=== PATIENT | female | born 1960 | race Caucasian/White ===

== ENCOUNTER → 2019-10-30 10:54 | Outpatient (CLI) | payer BC, SELFPAY ==
--- NOTE | ~2019-10-30 | MM_ITS ---
EXAMINATION: MM screening blayne BI w gabriella HISTORY: Screening mammogram TECHNIQUE: Craniocaudal and mediolateral oblique 3-D tomosynthesis images were obtained and synthetic 2-D images were generated. CAD analysis was submitted and interpreted. COMPARISON: 08/04/2018 and 12/26/2017 right diagnostic digital mammogram examinations /, 10/06/2015 bilateral digital screening mammogram examinations BREAST PARENCHYMAL COMPOSITION: There are scattered areas of fibroglandular density. FINDINGS: Scattered punctate benign right breast calcifications. Fewer benign left breast calcificati ons. There is no evidence of suspicious mass, calcification, or architectural distortion to suggest m alignancy in either breast. There has been no suspicious interval change. IMPRESSION: 1. No mammographic evidence of malignancy. 2. Recommend routine screening mammography in one year. BI-RADS Category 2: Benign finding(s). Reviewed, dictated and finalized at location A. ERCIAL ELECTRICIAN
== END ==
PROVIDERS: PCP Chiropractor; Visit Provider Obstetrics & Gynecology
DX: Z12.31 Encounter for screening mammogram for malignant neoplasm of breast (principal)
CPT/HCPCS: 77063; 77067

== ENCOUNTER → 2020-06-24 13:47 | Outpatient (CLI) | payer BC, SELFPAY ==
--- NOTE | ~2020-06-24 | XR_ITS ---
XR knee RT min 4V DATE: 06/24/2020 14:14 INDICATION: Right knee pain TECHNIQUE: 4 views including sunrise and standing AP, PA and lateral COMPARISON: None FINDINGS: There is mild periarticular spurring at the patellofemoral and medial compartments, mild lo ss of height of the medial compartment, compatible with osteoarthritis. There is enthesopathy of the superior pole of the patella at the quadriceps and patellar tendon inser tion sites. No fracture, dislocation or joint effusion. No periosteal reaction or bone destruction. No radiopaque intra-articular loose body or chondrocalcinosis is evident. 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
== END ==
PROVIDERS: PCP Chiropractor; Visit Provider Chiropractor
DX: M17.11 Unilateral primary osteoarthritis, right knee (principal)
CPT/HCPCS: 73564

== ENCOUNTER 2021-09-12 09:55 | Outpatient (CLI) | payer BC, SELFPAY ==
--- NOTE | ~2021-09-12 | MM_ITS ---
EXAMINATION: MM screening blayne BI w gabriella HISTORY: Screening TECHNIQUE: Craniocaudal and mediolateral oblique 3-D tomosynthesis images were obtained and synthetic 2-D images were generated. CAD analysis was submitted and interpreted. COMPARISON: Comparison to multiple prior studies sequentially, with oldest reviewed study dated 03/09. BREAST PARENCHYMAL COMPOSITION: There are scattered areas of fibroglandular density. FINDINGS: There is no evidence of suspicious mass, calcification, or architectural distortion to sugg est malignancy in either breast. There has been no suspicious interval change. IMPRESSION: 1. No mammographic evidence of malignancy. 2. Recommend routine screening mammography in one year. BI-RADS Category 1: Negative Reviewed, dictated and finalized at location A. SMISSION WORKER
== END 2021-09-12 09:56 | disposition home or self-care (01) ==
PROVIDERS: PCP Chiropractor; Visit Provider Nurse Practitioner Obstetrics & Gynecology
DX: Z12.31 Encounter for screening mammogram for malignant neoplasm of breast (principal)
CPT/HCPCS: 77063; 77067

== ENCOUNTER → 2021-12-18 18:11 | Outpatient (CLI) | payer BC, SELFPAY ==
--- NOTE | ~2021-12-18 | DEXA_ITS ---
Bone Density Report Name: MICHAEL LUNA Age: 61 Sex: Female Ethnicity: White Date of : 1960 Indication: postmenopausal; screening for osteoporosis; Referring Provider: Chrissy, Denisse Joyner Study: Bone densitometry was performed. Exam Date: December 18, 2021 Accession number: [id number] Bone Density: Region BMD T-score Z-score Classification AP Spine (L1, L2, L4) 0.965 -0.6 0.8 Normal Femoral Neck (Left) 0.868 0.2 1.5 Normal Total Hip (Left) 1.023 0.7 1.6 Normal Femoral Neck (Right) 0.779 -0.6 0.7 Normal Total Hip (Right) 1.005 0.5 1.5 Normal Total Hip Mean 1.014 0.6 1.6 Normal World Health Organization criteria for BMD impression classify patients as: Normal (T-score at or above -1.0), Osteopenia (T-score between -1.0 and -2.5), or Osteoporosis (T-score at or below -2.5). 10-year Fracture Risk: FRAX not reported because: All T-scores for Spine Total, Hip Total, Femoral Neck at or above -1.0 Previous Exams: Region Exam Age BMD T-score BMD Change BMD Change Date g/cm2 vs Baseline vs Previous AP Spine(L1, L2, L4) 12/18/2021 61 0.965 -0.6 -0.110 -0.110 11/08/2010 50 1.076 0.4 Total Hip(Left) 12/18/2021 61 1.023 0.7 0.012 0.012 11/08/2010 50 1.011 0.6 Total Hip(Right) 12/18/2021 61 1.005 0.5 0.014 0.014 11/08/2010 50 0.991 0.4 *Denotes significance at 95% confidence level, LSC for AP Spine = 0.022 g/cm2, LSC for Total Hip = 0.027 g/cm2 Clinical Information Provided by Patient: Has used the following medications: Vitamin D, MULT VIT Patient maximum height was 67 Menopause Age: 50 Drinks caffeinated beverages Onset of menses at age 13 Number of children 2 Impression: The patient has normal bone mass. No significant bone loss was observed. Discussion: BONE DENSITY IS ABOVE THE MINIMUM DESIRABLE LEVEL AT ALL SKELETAL SITES TESTED. This patient?s bone mineral density is above the minimum desirable level (T-score -1.0 or better) at all sites measured. The patient should follow a healthful lifestyle (good nutrition with adequate calcium and vitamin D, and appropriate weight-bearing exercise). Follow-Up: Consider repeating this study in 5 years or sooner if there is some new clinical indication. Reported by: CHASIDY on 12/18/2021 6:35:00 PM. Reviewed, dictated and finalized at location AAna LU
== END ==
PROVIDERS: PCP Nurse Practitioner Family; Visit Provider Nurse Practitioner Obstetrics & Gynecology
DX: Z78.0 Asymptomatic menopausal state (principal)
CPT/HCPCS: 77080

== ENCOUNTER → 2022-08-23 15:02 | Outpatient (CLI) | payer BC, SELFPAY ==
--- NOTE | ~2022-08-23 | XR_ITS ---
EXAMINATION: XR lumbar spine 2-3V DATE: 08/23/2022 15:29 INDICATION: Strain of back muscle. TECHNIQUE: 3 views of lumbar spine were obtained. COMPARISON: Lumbar spine radiographs 07/31/2012, CT abdomen and pelvis 06/17/2016 FINDINGS: There is 4 degrees dextrocurvature of lumbar spine. There is mild chronic anterior wedging of T12 vertebral body. There is mildly decreased disc height at L4-L5. There is multilevel facet join t osteoarthritis, moderate in lower lumbar spine. There is a lap band around the proximal stomach. IMPRESSION: 1. Mild lumbar spondylosis. Reviewed, dictated and finalized at location A. NURSE IMPRESSION: 1. Mild lumbar spondylosis.
--- NOTE | ~2022-08-23 | XR_ITS ---
EXAMINATION: XR thoracic spine 2V DATE: 08/23/2022 15:29 INDICATION: Strain of back muscle. TECHNIQUE: 3 views of thoracic spine were obtained. COMPARISON: CT abdomen and pelvis 06/17/2016 FINDINGS: Bone alignment is normal. Vertebral body heights are normal. Intervertebral disc heights ar e normal in thoracic spine. There are endplate osteophytes at most levels. There are surgical clips i n the neck. There is a lap band around the proximal stomach. IMPRESSION: 1. Mild thoracic spondylosis. Reviewed, dictated and finalized at location A. ING ENGINEER
== END ==
PROVIDERS: PCP Nurse Practitioner Family; Visit Provider Nurse Practitioner Family
DX: S39.012A Strain of muscle, fascia and tendon of lower back, initial encounter (principal); M43.04 Spondylolysis, thoracic region; M43.06 Spondylolysis, lumbar region
CPT/HCPCS: 72070; 72100

== ENCOUNTER 2022-12-21 17:38 | Emergency (ER) | payer BC, SELFPAY ==
--- NOTE | 2022-12-21 17:42 | ED.SKABFB ---
HPI - Skin/Abscess/Foreign Bdy General Chief complaint: Skin/Abscess/Foreign Body Stated complaint: BOIL ON R BREAST Time Seen by Provider: 12/21/22 17:43 Source: patient Mode of arrival: ambulatory Limitations: no limitations History of Present Illness HPI narrative: 62-year-old female presents with complaint of redness, warmth and tenderness to right breast. Reports symptoms for the past 10 days getting progressively worse. Saw her primary care physician 2 days ago and states that the redness was that bad then and was told to continue antibiotic ointment. Patient states much worse today. Called on-call physician because her primary care physician is out of office and he would not prescribe her an antibiotic over the phone. Patient denies fever. Reports sometime over the last 10 days she poked her right breast with an insulin needle to check for drainage and there was none. She states that it started out as a small red bump, never having any drainage, and the redness slowly got bigger and bigger. Her last mammogram was August 2021 and was normal. She does have an order for a mammogram for this year that she plans to schedule soon. All systems reviewed and negative except as noted above. Related Data Home Medications Medication Instructions Recorded Confirmed escitalopram oxalate 5 mg tablet 5 mg DIRECTED 12/21/22 12/21/22 levothyroxine 100 mcg tablet 100 mcg DIRECTED 12/21/22 12/21/22 Allergies Allergy/AdvReac Type Severity Reaction Status Date / Time latex Allergy Unknown RASH-GLOVES Verified 12/16/17 08:15 levofloxacin Allergy Unknown LIP Verified 12/16/17 08:15 SWELLING naproxen Allergy Unknown PETECHIAE Verified 12/16/17 08:15 Penicillins Allergy Unknown Verified 07/31/12 14:28 Review of Systems Review of Systems: CONSTITUTIONAL: Denies fever, chills, or sweats. EYES: Denies visual changes, redness, or discharge. ENT: Denies rhinorrhea, congestion, sore throat, or otalgia. CARDIOVASCULAR: Denies chest pain, palpitations, or edema. RESPIRATORY: Denies cough or dyspnea. GASTROINTESTINAL: Denies abdominal pain, nausea, vomiting, or diarrhea. GENITOURINARY: Denies dysuria or hematuria. SKIN: Denies rash or itching. Reports redness, warmth and tenderness to lateral aspect of right breast. MUSCULOSKELETAL: Denies back pain, joint pain, or myalgia. NEUROLOGIC: Denies headache, numbness, or weakness. PSYCHIATRIC: Denies anxiety or depression. All other systems reviewed are negative, except as documented in HPI. [facility] Family History Family History (Updated 11/30/16 @ 23:56 by DOCTOR UNKNOWN) Father Family history of drug dependence Hypertension Mother Family history of kidney disease Family history of diabetes mellitus in first degree relative Sibling Family history of malignant neoplasm of brain, Onset Age: 48 Patient's sister is Social History Social History Smoking status: Never smoker Alcohol intake: current Comments At time of signature, agree with nursing past medical, surgical, social and family history. There is no relevant family history pertinent to the presenting complaint. Exam Narrative: GENERAL: This is a well-nourished, well-developed patient, in no apparent distress. HEAD: normocephalic, atraumatic. EYES: PERRL. Sclera clear/white. Vision is grossly intact. EARS: External ears normal NOSE: External nose normal NECK: Neck supple, non-tender without lymphadenopathy, masses or thyromegaly. CARDIOVASCULAR: Regular rate and rhythm without murmurs, gallops, or rubs. RESPIRATORY: Clear to auscultation. Breath sounds equal bilaterally. No wheezes, rales, or rhonchi. SKIN: warm, Dry, intact , good texture and turgor. There is an area of erythema and swelling approximately 2 cm diameter with approximately 6 cm of training and development assistant redness. no fluctuance or induration. tender on palpation. NEURO: awake, alert, and oriented to person, place and time. The
[2022-12-21 17:48] VITALS: BP 152/66; PULSE 74; RESP 16; TEMP 36.9; O2SAT 97
== END 2022-12-21 18:15 | disposition home or self-care (01) ==
PROVIDERS: Emergency Provider Nurse Practitioner Family; PCP Nurse Practitioner Family
DX: N61.0 Mastitis without abscess (principal); E89.0 Postprocedural hypothyroidism; F41.9 Anxiety disorder, unspecified; F32.A Depression, unspecified
CPT/HCPCS: 99213; G0463

== ENCOUNTER 2023-02-11 17:27 | Emergency (ER) | payer BC, SELFPAY ==
--- NOTE | 2023-02-11 17:28 | ED.URI ---
HPI - URI/Sore Throat General Chief Complaint: Upper Respiratory Infection Stated Complaint: SORE THROAT/FEVER/EARACHE Time Seen by Provider: 02/11/23 17:28 Source: patient Mode of arrival: ambulatory Limitations: no limitations History of Present Illness HPI Narrative: Preri is a 62-year-old female patient presenting to clinic today with complaints of sore throat, sinus drainage, fever, body aches, chills, and ear pain x3 days. She reports she is having a lot of nasal drainage. Fever as high as 101? F. Has had 1 episode of due to the sinus drainage. No known exposure time with COVID, flu, strep. MD elicited complaint: fever, cough, sore throat, rhinorrhea, nasal congestion and sinus pain Related Data Home Medications Medication Instructions Recorded Confirmed escitalopram oxalate 5 mg tablet 5 mg DIRECTED 12/21/22 02/11/23 levothyroxine 100 mcg tablet 100 mcg DIRECTED 12/21/22 02/11/23 Allergies Allergy/AdvReac Type Severity Reaction Status Date / Time latex Allergy Unknown RASH-GLOVES Verified 02/11/23 17:47 levofloxacin Allergy Unknown LIP Verified 02/11/23 17:47 SWELLING naproxen Allergy Unknown PETECHIAE Verified 02/11/23 17:47 Penicillins Allergy Unknown Rash Verified 02/11/23 17:47 Review of Systems Review of Systems: Pertinent positives per HPI. Patient denies any rash, headache, visual changes, dizziness, cough, shortness of breath, chest pain, palpitations, diarrhea, constipation, abdominal pain, or any urinary issues. PMFSH Family History Family History Father Family history of drug dependence Hypertension Mother Family history of kidney disease Family history of diabetes mellitus in first degree relative Sibling Family history of malignant neoplasm of brain, Onset Age: 48 Patient's sister is Social History Social History Smoking status: Never smoker Alcohol intake: current Comments At the time of my signature, I reviewed and agree with the nursing past medical, surgical, social, and family history. There is no relevant family history pertinent to the patient complaint. Exam Narrative: General: Well-developed, well nourished, in no apparent distress Head: Normocephalic, atraumatic Eyes: Pupils equally round and reactive to light bilaterally, EOM intact, sclera and conjunctive clear, no discharge, lids normal Ears: TMs intact and conjested, ear canals clear, no drainage, grossly hearing normal. Nose: Nares patent, clear nasal discharge, no inflammation, maxillary sinus tenderness. Mouth: Oral pharynx red without lesions or masses, good dentition, MMM. PND Neck: Supple, trachea midline, enlargement of anterior cervical nodes, no thyroid masses or goiter palpable. Cardio: Regular rate and rhythm, s1 and s2 normal, no murmur appreciated. Resp: Clear to auscultation bilaterally, no rhonchi, rales, wheezing or rubs Course Course Emergency Course: Portions of this record may have been created with voice recognition software. Level of Care: Express Care Visit Vital Signs Vital signs: Vital signs reviewed MDM - URI/Sore Throat MDM Narrative Medical decision making narrative: At the time of visit patient is resting comfortably on the exam table. Strep screen and influenza testing was obtained. I suspect patient has URI, pharyngitis, viral syndrome. Will send in prescription for prednisone to help with the sinus congestion and drainage. Supportive measures were discussed with the patient and she voiced understanding discharge instructions agrees to treatment plan. Differential Diagnosis Differential diagnosis: Likely upper respiratory infection, otitis media, sinusitis, viral infection, bronchitis, influenza, pharyngitis and other (COVID) Discharge Plan Discharge Clinical Impression: Viral infection Upper respira
[2023-02-11 17:43] VITALS: BP 172/66; PULSE 97; RESP 16; TEMP 37.5; O2SAT 96
[2023-02-11 17:56] VITALS: BP 172/66; PULSE 97; RESP 16; TEMP 37.5; O2SAT 96
== END 2023-02-11 18:02 | disposition home or self-care (01) ==
PROVIDERS: Emergency Provider Nurse Practitioner Family; PCP Nurse Practitioner Family
DX: B34.9 Viral infection, unspecified (principal); J06.9 Acute upper respiratory infection, unspecified; J02.9 Acute pharyngitis, unspecified; F41.9 Anxiety disorder, unspecified; F32.A Depression, unspecified; Z98.84 Bariatric surgery status; E03.9 Hypothyroidism, unspecified
CPT/HCPCS: 87081; 87804; 87880; 99213; G0463

== ENCOUNTER → 2023-05-03 09:57 | Outpatient (CLI) | payer BC, SELFPAY ==
--- NOTE | ~2023-05-03 | MM_ITS ---
EXAMINATION: MM screening blayne BI w gabriella HISTORY: Screening mammogram TECHNIQUE: Craniocaudal and mediolateral oblique 3-D tomosynthesis images were obtained and synthetic 2-D images were generated. CAD analysis was submitted and interpreted. COMPARISON: 09/12/2021, 10/30/2019 bilateral screening mammogram examinations BREAST PARENCHYMAL COMPOSITION: There are scattered areas of fibroglandular density. FINDINGS: There is no evidence of suspicious mass, calcification, or architectural distortion to sugg est malignancy in either breast. There has been no suspicious interval change. IMPRESSION: 1. No mammographic evidence of malignancy. 2. Recommend routine screening mammography in one year. BI-RADS Category 1: Negative Reviewed, dictated and finalized at location A.
== END ==
PROVIDERS: PCP Nurse Practitioner Family; Visit Provider Nurse Practitioner Family
DX: Z12.31 Encounter for screening mammogram for malignant neoplasm of breast (principal)
CPT/HCPCS: 77063; 77067

== ENCOUNTER 2023-06-29 18:04 | Emergency (ER) | payer BC, SELFPAY ==
--- NOTE | 2023-06-29 18:09 | ED.URI ---
HPI - URI/Sore Throat General Chief Complaint: Upper Respiratory Infection Stated Complaint: EARACHE/COUGH/COLD Source: patient and RN notes reviewed History of Present Illness HPI Narrative: 63 yo F presents to urgent care with complaints of left ear pain. Pt states she has been sick with cough, congestion, and fevers since night. Pt states the ear pain started today. Pt denies any N/V/D, chest pain, or SOB. Pt does report having generalized weakness. Denies any falling. Pt has been taking Coricidin with moderate relief. Related Data Home Medications Medication Instructions Recorded Confirmed escitalopram oxalate 5 mg tablet 5 mg DIRECTED 12/21/22 06/29/23 levothyroxine 100 mcg tablet 100 mcg DIRECTED 12/21/22 06/29/23 blood sugar diagnostic (Accu-Chek 06/29/23 06/29/23 Guide test strips) blood-glucose meter (Accu-Chek 06/29/23 06/29/23 Guide Glucose Meter) lancets (Accu-Chek Softclix 06/29/23 06/29/23 Lancets) metformin 500 mg tablet,extended 500 mg PO DIRECTED 06/29/23 06/29/23 release 24 hr tirzepatide 2.5 mg/0.5 mL 2.5 mg subcut DIRECTED 06/29/23 06/29/23 subcutaneous pen injector (Cass) Allergies Allergy/AdvReac Type Severity Reaction Status Date / Time latex Allergy Unknown RASH-GLOVES Verified 06/29/23 18:09 levofloxacin Allergy Unknown LIP Verified 06/29/23 18:09 SWELLING naproxen Allergy Unknown PETECHIAE Verified 06/29/23 18:09 Penicillins Allergy Unknown Rash Verified 06/29/23 18:09 Review of Systems Review of Systems: Pertinent positives and pertinent negatives per HPI. [facility] Family History Family History Father Family history of drug dependence Hypertension Mother Family history of kidney disease Family history of diabetes mellitus in first degree relative Sibling Family history of malignant neoplasm of brain, Onset Age: 48 Patient's sister is Social History Social History Smoking status: Never smoker Alcohol intake: current Spiritual care concerns: No Comments At the time of my signature, I reviewed and agree with the nursing past medical, surgical, social, and family history. There is no relevant family history pertinent to the patient complaint. Exam Narrative: GENERAL: This is a well-nourished, well-developed patient, in no apparent distress. HEAD: normocephalic, atraumatic. EYES: Sclera clear/white. Vision is grossly intact. EARS: External ears normal, auditory canals clear and without drainage, Right TM normal without perforation. Hearing grossly intact. Left TM erythremic and bulging. NOSE: External nose normal with no obvious nasal discharge, nares without redness, no rhinorrhea. THROAT: Mucous membranes moist, posterior pharynx clear. NECK: Neck supple, non-tender without lymphadenopathy, masses or thyromegaly. CARDIOVASCULAR: Regular rate and rhythm without murmurs, gallops, or rubs. RESPIRATORY: Clear to auscultation. Breath sounds equal bilaterally. No wheezes, rales, or rhonchi. SKIN: warm, intact with no suspicious lesions or rash, good texture and turgor. NEURO: awake, alert, and oriented to person, place and time. There were no obvious focal neurologic abnormalities. EXTREMITIES: No clubbing, cyanosis, or edema. No joint tenderness, effusion, or edema noted. BACK: Nontender without deformity or crepitus. No flank tenderness. Course Course Level of Care: Express Care Visit Vital Signs Vital signs: Vital Signs Temperature 100.2 F H 06/29/23 18:12 Pulse Rate 98 06/29/23 18:12 Respiratory Rate 16 06/29/23 18:12 Blood Pressure 126/72 06/29/23 18:12 Pulse Oximetry 95 06/29/23 18:12 Temperature 100.2 F H 06/29/23 18:12 Pulse Rate 98 06/29/23 18:12 Respiratory Rate 16 06/29/23 18:12 Blood Pressure 126/72 06/29/23 18:12 Pulse Ox
[2023-06-29 18:12] VITALS: BP 126/72; PULSE 98; RESP 16; TEMP 37.9; O2SAT 95
== END 2023-06-29 18:29 | disposition home or self-care (01) ==
PROVIDERS: Emergency Provider Nurse Practitioner Family; PCP Nurse Practitioner Family
DX: B34.9 Viral infection, unspecified (principal); H66.92 Otitis media, unspecified, left ear; G47.30 Sleep apnea, unspecified; E11.9 Type 2 diabetes mellitus without complications; Z79.84 Long term (current) use of oral hypoglycemic drugs; E89.0 Postprocedural hypothyroidism; Z98.84 Bariatric surgery status; F41.9 Anxiety disorder, unspecified; F32.A Depression, unspecified
CPT/HCPCS: 99213; G0463

== ENCOUNTER 2023-07-05 08:15 | Outpatient (RCR) | payer BC, SELFPAY ==
[2023-06-26 08:20] VITALS: BMI 36.9
[2023-06-26 08:23] VITALS: BMI 36.9
[2023-07-05 08:20] VITALS: BMI 36.9
== END 2023-09-17 12:40 | disposition home or self-care (01) ==
LOC: ANHDMC 08:15
PROVIDERS: PCP Nurse Practitioner Family; Visit Provider Nurse Practitioner Family
DX: E11.9 Type 2 diabetes mellitus without complications (principal); Z71.3 Dietary counseling and surveillance
CPT/HCPCS: 97802; 97803

== ENCOUNTER 2023-09-04 08:53 | Outpatient (CLI) | payer BC, SELFPAY | END 2023-09-04 08:54 | disposition home or self-care (01) | LOC: ANHAUDASC 08:53 | PROVIDERS: PCP Nurse Practitioner Family; Visit Provider Otolaryngology | DX: H90.6 Mixed conductive and sensorineural hearing loss, bilateral (principal); H69.92 Unspecified Eustachian tube disorder, left ear | CPT/HCPCS: 92557; 92567 ==

== ENCOUNTER 2023-09-06 13:35 | Emergency (ER) | payer BC, SELFPAY ==
--- NOTE | ~2023-09-06 | XR_ITS ---
Clinical Indication: Cough, rib pain PA and lateral views of the chest: Comparison: 12/28/2010 Findings: There is probable linear scarring at the right midlung and left lung base. No other pulmona ry abnormality seen.. Cardiomediastinal silhouette is within normal limits. Bones and soft tissues a re unremarkable. Impression: Linear scarring right midlung and left lung base, otherwise unremarkable exam. Reviewed, dictated and finalized at location . TERIA MANAGER Impression: Linear scarring right midlung and left lung base, otherwise unremarkable exam.
--- NOTE | 2023-09-06 13:40 | ED.URI ---
HPI - URI/Sore Throat General Chief Complaint: Upper Respiratory Infection Stated Complaint: Cough;Rib pain Source: patient, RN notes reviewed and old records reviewed Mode of arrival: ambulatory Limitations: no limitations History of Present Illness HPI Narrative: 7-year-old female presents to [facility] with complaints of cough this started around Halloween. Patient states has been seen prior to this and has had 3 rounds of antibiotics including Augmentin, clindamycin, doxycycline and steroids, for ear issues /sinus infection. Patient states still has cough and is now having right rib pain. MD elicited complaint: cough Related Data Home Medications Medication Instructions Recorded Confirmed escitalopram oxalate 5 mg tablet 5 mg DIRECTED 12/21/22 09/06/23 levothyroxine 100 mcg tablet 100 mcg DIRECTED 12/21/22 09/06/23 blood sugar diagnostic (Accu-Chek 06/29/23 07/22/23 Guide test strips) blood-glucose meter (Accu-Chek 06/29/23 07/22/23 Guide Glucose Meter) lancets (Accu-Chek Softclix 06/29/23 07/22/23 Lancets) metformin 500 mg tablet,extended 500 mg PO DIRECTED 06/29/23 09/06/23 release 24 hr tirzepatide 2.5 mg/0.5 mL 2.5 mg subcut DIRECTED 06/29/23 09/06/23 subcutaneous pen injector (Cass) Allergies Allergy/AdvReac Type Severity Reaction Status Date / Time latex Allergy Unknown RASH-GLOVES Verified 09/06/23 13:44 levofloxacin Allergy Unknown LIP Verified 09/06/23 13:44 SWELLING naproxen Allergy Unknown PETECHIAE Verified 09/06/23 13:44 Penicillins Allergy Unknown Rash Verified 09/06/23 13:44 Review of Systems Constitutional: Constitutional: Reports no additional constitutional complaints, Denies body ache(s), Denies chills, Denies fatigue, Denies fever(s) and Denies headache(s) Eyes: Eyes: Reports no additional eye complaints and Denies blurry vision ENT: Reports system reviewed and no additional complaints, except as documented, Denies vertigo, Denies dizziness, Denies ear discharge, Denies otalgia, Denies facial pain, Denies headache(s), Denies nasal congestion, Denies nasal discharge, Denies sinus pain, Denies sinus pressure and Denies sore throat Cardiovascular: Cardiovascular: Reports no additional cardiovascular complaints, Denies chest pain, Denies chest pain at rest, Denies rapid heart rate and Denies dyspnea Respiratory: Respiratory: Reports no additional respiratory complaints, Reports chest congestion, Reports cough, Reports pain on inspiration, Reports pain with cough and Denies dyspnea Comments: Right rib pain Gastrointestinal: Gastrointestinal: Denies abdominal pain, Denies diarrhea, Denies nausea and Denies vomiting Integumentary/Breasts: Skin/Breast: Denies rash Neurologic: Reports system reviewed and no additional complaints, except as documented, Denies vertigo, Denies dizziness and Denies headache(s) Endocrine: Endocrine: Denies fatigue PMF Family History Family History Father Family history of drug dependence Hypertension Mother Family history of kidney disease Family history of diabetes mellitus in first degree relative Sibling Family history of malignant neoplasm of brain, Onset Age: 48 Patient's sister is Social History Social History Social History: Caffeine-daily Smoking status: Never smoker Alcohol intake: current Alcohol use details: rarely Substance use: never Substance use type: does not use Lack of Transportation: No Lack of Food: Never True Current Housing: I Have Housing Concerned About Future Housing: No Difficulty Paying Gas/Electric Bills: No Difficulty Paying for Meds: No Currently Unemployed: No Education: Master's Degree or Higher Difficulty w/ Childcare or Family Care: No Spiritual care concerns: No Comments At the time of my signature, I re
[2023-09-06 13:43] VITALS: BP 151/63; PULSE 73; RESP 16; TEMP 36.4; O2SAT 73
[2023-09-06 13:46] VITALS: BP 151/63; PULSE 73; RESP 16; TEMP 36.4; O2SAT 73
== END 2023-09-06 14:17 | disposition home or self-care (01) ==
PROVIDERS: Emergency Provider Registered Nurse; PCP Nurse Practitioner Family
DX: R05.2 Subacute cough (principal); Z79.899 Other long term (current) drug therapy; Z79.84 Long term (current) use of oral hypoglycemic drugs
CPT/HCPCS: 71046; 99213; G0463

== ENCOUNTER 2024-05-07 07:25 | Outpatient (CLI) | payer BC, SELFPAY ==
--- NOTE | ~2024-05-07 | MM_ITS ---
EXAMINATION: MM screening [facility] BI w gabriella HISTORY: Screening mammogram TECHNIQUE: Craniocaudal and mediolateral oblique 3-D tomosynthesis images were obtained and synthetic 2-D images were generated. CAD analysis was submitted and interpreted. COMPARISON: 05/03/2023, 09/12/2021, 10/30/2019 BREAST PARENCHYMAL COMPOSITION:Not Dense. There are scattered areas of fibroglandular density. FINDINGS: No suspicious mass, calcification, or architectural distortion are identified in either [place]chito ast to suggest malignancy. There has been no suspicious interval change. IMPRESSION: No mammographic evidence of malignancy. Recommend routine screening mammography in one year. BI-RADS Category 1: Negative Reviewed, dictated and finalized at location .
== END 2024-05-07 07:26 | disposition home or self-care (01) ==
DX: Z12.31 Encounter for screening mammogram for malignant neoplasm of breast (principal)
CPT/HCPCS: 77063; 77067

== ENCOUNTER 2025-04-27 09:12 | Outpatient (CLI) | payer BC, SELFPAY ==
--- NOTE | ~2025-04-27 | XR_ITS ---
XR abdomen/kub 1V 04/27/2025 09:44 INDICATION: Left renal stone TECHNIQUE: KUB COMPARISON: None FINDINGS: Bowel gas pattern is normal. There is no evidence of free air, mass, organomegaly, ascites or obstruction. There is a left renal stone in the lower pole. There are cholecystectomy clips. The bones appear intact. IMPRESSION: 1: Left nephrolithiasis.. Reviewed, dictated and finalized at location O. IMPRESSION: 1: Left nephrolithiasis..
== END 2025-04-27 09:13 | disposition home or self-care (01) ==
PROVIDERS: Visit Provider Physician Assistant
DX: N20.0 Calculus of kidney (principal)
CPT/HCPCS: 74018

== ENCOUNTER 2025-05-18 08:08 | Outpatient (CLI) | payer BC, SELFPAY ==
--- OUTSIDE RECORDS SUMMARY | 2024-01-18 04:00 | XMS_ITS ---
Author Organization [facility] Address [address] [facility] [address] [place], [place] [id number] Care Team Providers Care Deep Well Contractor Name Role Phone Finesse Duarte DO [phone] Migration, Provider Unavailable Unavailable REASON FOR VISIT EMR-Abiodun Encounters Encounter Location Date Provider Diagnosis [facility] [address] [facility] [address] [place], [place] [id number] 01/18/2024 Provider Migration Plan Of Treatment No Information Progress Notes * MICHAEL LUNA KDOB:1959 (65 yo F)Acc No.[id number]:01/18/2024 Patient: MICHAEL ZEPEDA :1960 A ge:63 Y S ex:Female Address:[place], [address] Subjective: * Chief Complaints: * E MR-Abiodun * Medical History: * Surgical History: * Hospitalization/Major Diagno stic Procedure: * Medications: Objective: * Vitals: Past Vitals:* 09/06/2023 Wt: 227.00, BMI: 36.1 * Physical Examination: Assessment: Plan: * Treatment: * Procedure Codes: * * Date:
--- OUTSIDE RECORDS SUMMARY | 2024-01-19 04:00 | XMS_ITS ---
Author Organization [facility] Address [address] [place], [place] [phone] Care Team Providers Care Senior Process Analyst Name Role Phone Finesse Duarte DO Unavailable [phone] Migration, Provider Unavailable Unavailable Allergies Allergen (clinical drug ingredient) Drug/Non Drug Allergy documented on EMR Reaction Allergy Type Onset Date Status Substance with penicillin structure and antibacterial mechanism of action (substance) Penicillins Unknown Drug Allergy 08/14/2023 Active REASON FOR VISIT EMR-Abiodun Medications Medication SIG (Take, Route, Frequency, Duration) Notes Start Date End Date Status ACCU-CHEK SOFTCLIX MISCELLANEOUS *Reorder from [facility] for eRx and Interaction Alerts* 09/06/2023 Active DAPAGLIFLOZIN PROPANEDIOL 5 MG TABLET *[facility] for [facility] and Interaction Alerts* 09/06/2023 Active ACCU-CHEK GUIDE MONITOR SYSTEM MISCELLANEOUS *Reorder from [facility] for eRx and Interaction Alerts* 09/06/2023 Active ACCU-CHEK GUIDE TEST STRIPS *[facility] from [facility] for [facility]Rx and Interaction Alerts* 09/06/2023 Active Mounjaro 7.5 MG/0.5ML Subcutaneous 09/06/2023 Active Magnesium Glycinate *[facility] for eRX* 09/06/2023 Active Mounjaro 10 MG/0.5ML [...] Active Methocarbamol 750 MG Oral 09/06/2023 Active Deiiiykn-Dqljlodwk-FG 3.5-98823-7 Otic 09/06/2023 Active Nitrofurantoin Monohyd Macro 100 [...] [facility] [address] [facility] [address] [place], [place] [phone] 01/19/2024 Provider Migration Plan Of Treatment No Information Progress Notes * MICHAEL LUNA KDOB:1959 (65 yo F)Acc No.[id number]:01/19/2024 Patient: IVIS ZEPEDAYL John :1960 A ge:63 Y S ex:Female Address:[address] [place] [address], [facility] [address] Subjective: * Chief Complaints: * E MR-Abiodun * Medical History: * Surgical History: C holecystectomy (51243358) 08/26/1987Oophorectomy (91658730) left ovary 08/26/2004Laparoscopic adjustable gastric banding (508714349) (removed 10/2023) 08/26/2011Thyroidectomy (91906202) 08/26/2016Removal of gastric band (872229398) Dr. Finesse Duarte; [facility] 11/04/2023 * Hospitalization/Major Diagno stic Procedure: * [...] Tablet Oral metroNIDAZOLE 500 MG Tablet Oral Bwehmtwc-Mixklxrvb-AF 3.5-83195-0 Suspension Otic Nitrofurantoin Monohyd Macro 100 MG Capsule Oral Omeprazole 20 MG Capsule Delayed Release Oral prednisoLONE Acetate 1 % Suspension Ophthalmic predniSONE 20 MG Tablet Oral Thiamine HCl 250 mg TABLET ORAL Tobramycin 0.30% Solution Ophthalmic metFORMIN HCl ER 500 MG Tablet Extended Release 24 Hour Oral Magnesium Glycinate , Notes to Pharmacist: *Pick strength-form from [facility] for eRX*Mounjaro 10 MG/0.5ML Solution Pen-injector Subcutaneous Mounjaro 12.5 MG/0.5ML Solution Pen-injector Subcutaneous Mounjaro 2.5 MG/0.5ML Solution Pen-injector Subcutaneous Mounjaro 7.5 MG/0.5ML Solution Pen-injector Subcutaneous ACCU-CHEK GUIDE MONITOR SYSTEM Kit MISCELLANEOUS , Notes to Pharmacist: *Reorder from [facility] for eRx and Interaction Alerts*ACCU-CHEK GUIDE TEST STRIPS , Notes to Pharmacist: *Reorder from [facility] for eRx and Interaction Alerts*ACCU-CHEK SOFTCLIX EACH MISCELLANEOUS , Notes to Pharmacist: *Reorder from [facility] for eRx and Interaction Alerts*DAPAGLIFLOZIN PROPANEDIOL 5 MG TABLET , Notes to Pharmacist: *Reorder from [facility] for eRx and Interaction Alerts*Taking Amoxicillin-Pot [...] Taking metroNIDAZOLE 500 MG Tablet Oral Taking Ylrsdhpj-Qiwvefmzq-CT 3.5-47330-6 Suspension Otic Taking Nitrofurantoin Monohyd Macro 100 [...] , Notes to Pharmacist: *Pick strength-form from [facility] for eRX*Taking Mounjaro 10 MG/0.5ML Solution Pen-injector Subcutaneous Taking Mounjaro 12.5 MG/0.5ML Solution Pen-injector Subcutaneous Taking Mounjaro 2.5 MG/0.5ML Solution Pen-injector Subcutaneous Taking Mounjaro 7.5 MG/0.5ML Solution Pen-injector Subcutaneous Taking ACCU-CHEK GUIDE MONITOR SYSTEM Kit MISCELLANEOUS , Notes to Pharmacist: *Reorder from [facility] for eRx and Interaction Alerts*Taking ACCU-CHEK GUIDE TEST STRIPS , Notes to Pharmacist: *Reorder from [facility] for eRx and Interaction Alerts*Taking ACCU-CHEK SOFTCLIX EACH MISCELLANEOUS , Notes to Pharmacist: *Reorder from [facility] for eRx and Interaction Alerts*Taking DAPAGLIFLOZIN PROPANEDIOL 5 MG TABLET , Notes to Pharmacist: *Reorder from [facility] for eRx and Interaction Alerts* * Allergies: P enicillins: Allergy - Onset Date 08/14/2023 Objective: * Vitals: Past Vitals:* 09/06/2023 Wt: 227.00, BMI: 36.1 * Physical Examination: Assessment: Plan: * Treatment: * Procedure Codes: * * Date:
--- OUTSIDE RECORDS SUMMARY | 2024-07-27 02:30 | XMS_ITS ---
Author Organization [facility] Address [address] [place], [place] [address] Care Team Providers Care Oracle Bpm Consultant Name Role Phone Finesse Duarte DO [phone] REASON FOR VISIT hernia @730a pt aware Encounters Encounter Location Date Provider Diagnosis [facility] [address] [facility] [place] [address] 07/27/2024 Finesse Duarte Plan Of Treatment No Information Progress Notes * MICHAEL LUNA KDOB:1959 (65 yo F)Acc No.[id number]:07/27/2024 Patient: MICHAEL ZEPEDA Provider: Guilherme Duarte DO :1960 A ge:64 Y S ex:Female Date:07/27/2024 Address:[address] [place], [place] [id number] Subjective: * Chief Complaints: * 1 . Hernia @730a pt aware. * Medical History: Objective: * Vitals: Past Vitals:* 04/23/2024 Wt:217, BMI:34.5, BP:120/78 * 09/06/2023 Wt: 227.00, BMI: 36.1 Assessment: Plan: * Treatment: * Billing Information: * Visit Code: * Procedure Codes: * Electronic signature of Franck Duarte DO, [id number] on 05/18/2025 at 08:25 AM CDT Sign off status: Pending * Provider: Guilherme Duarte DO Date: 09/27/2023 Generated for Printi ng/Faxing/eTransmitting on: 0 05/18/2025 08:25 AM CDT
--- NOTE | ~2025-05-18 | MM_ITS ---
EXAMINATION: MM screening blayne BI w gabriella HISTORY: Screening TECHNIQUE: Craniocaudal and mediolateral oblique 3-D tomosynthesis images were obtained and synthetic 2-D images were generated. CAD analysis was submitted and interpreted. COMPARISON: Comparison to multiple prior studies sequentially, with oldest reviewed study dated , 10/30/2019 BREAST PARENCHYMAL COMPOSITION: There are scattered areas of fibroglandular density. FINDINGS: There is no evidence of suspicious mass, calcification, or architectural distortion to suggest malignancy in either breast. IMPRESSION: 1. No mammographic evidence of malignancy. 2. Recommend routine screening mammography in one year. BI-RADS Category 1: Negative Reviewed, dictated and finalized at location C.
--- OUTSIDE RECORDS SUMMARY | 2025-05-18 08:25 | XMS_ITS | Clinical Summary ---
Author Organization [facility] Address [address] [place] [address] Care Team Providers Care Linen Room Houseperson Name Role Phone Josh Ardon MD Primary Care Provider Allergies Active Allergy Reactions Criticality Noted Date Comments Latex Contact Dermatitis 08/24/2020 Levofloxacin Swelling Medium 09/25/2018 Penicillins Rash,Unknown Medium 01/20/2020 Medications levothyroxine 100 MCG tablet Take 100 mcg by mouth daily. 06/29/2020 Active cyclobenzaprine 5 MG tablet Take 1 tablet by mouth as needed. Active Multiple Vitamins-Minera ls (MULTIVITAMIN ADULT OR) Take 1 tablet by mouth daily. Active vitamin D3, cholecalciferol , 5000 UNITS capsule Take 1 capsule by mouth once a week. Active Methylcobalamin (METHYL B-12 OR) Take 5 sprays by mouth daily. Active Lysine HCl 500 MG Tab Take 1 tablet by mouth nightly at bedtime. Active Magnesium 400 MG Tab Take 1 tablet by mouth nightly at bedtime. Active Coenzyme Q10 (CO Q 10) 100 MG Cap Take 1 capsule by mouth nightly at bedtime. Active vitamin B-12 100 MCG tablet Take by mouth daily. Active Active Problems Problem Noted Date Diagnosed Date Mixed anxiety and depressive disorder 08/04/2021 Heart palpitations 08/16/2020 Essential hypertension 07/06/2018 Fatigue 07/06/2018 Family History Medical History Relation Comments aaa Father Heart Attack Paternal Grandfather Valve Disease Paternal Grandfather Stroke Paternal Grandmother Relation Status Comments Brother Alive Father Alive Maternal Grandfather Maternal Grandmother Mother Alive Paternal Grandfather Paternal Grandmother Sister (Age 49) Social History Tobacco Use Types Packs/Day Years Used Date Smoking Tobacco: Former Smokeless Tobacco: Never Comments Unknown Sex and Gender Information Value Date Recorded Sex Assigned at Not on file Legal Sex Female 8:21 AM DUMP WORKER Gender Identity Not on file Sexual Orientation Not on file 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 Not on file Not on file Not on file Last Filed Vital Signs Vital Sign Reading Time Taken Comments Blood Pressure 132/78 09/21/2020 1:52 PM DUMP WORKER saran e bp Pulse 75 08/24/2020 10:07 AM DUMP WORKER Temperature - - Respiratory Rate - - Oxygen Saturation 98% 08/24/2020 10: 07 AM DUMP WORKER Inhaled Oxygen Concentration - - Weight 100.9 kg (222 lb 8 oz) 09/21/2020 1:52 PM DUMP WORKER home scale Height 170.2 cm (5' 7) 09/21/2020 1:52 PM DUMP WORKER Body Mass Index 34.85 09/21/2020 1:52 PM DUMP WORKER Plan of Treatment Health Maintenance Due Date Last Done Comments Colorectal Cancer Screening Colonoscopy (10 Years) 1960 Annual Physical 1964 Hepatitis C 1979 Cervical Cancer Screening Pa p with HPV Testing (Age 30 to 64) Every 5 Years 1991 Mammogram Screening 2001 Pneumococcal Vaccine: 50+ Years (1 of 1 - PCV) 2011 Zoster Vaccines (1 of 2) 2011 Cervical Cancer Screening Pa p Smear (Age 30 to 64) Every 3 Years 05/25/2024 05/25/2021 Cervical Cancer Screening wi th HPV 05/25/2024 COVID-19 Vaccine (4 - 2024-2 6 season) 2025 06/28/2021, 09/29/2020, 09/08/2020 DTaP, Tdap and Td Vaccines ( 2 - Td or Tdap) 01/19/2030 01/20/2020 RSV Immunization or 60+ Years (1 - 1-dose 75+ series) 2036 Meningococcal B Vaccine Aged Out No l onger eligible based on patient's age to complete this topic Meningococcal Vaccine Aged Out No cortney mike eligible based on patient's age to complete this topic RSV Immunizations Under 20 Months Aged Out No longer eligible b ased on patient's age to complete this topic Insurance [facility] Care Teams Linen Room Houseperson Relationship Specialty Start Date End Date Josh Ardon MD [address] [address] PCP - General INTERNAL MEDICINE 07/05/20
--- OUTSIDE RECORDS SUMMARY | 2025-05-18 08:25 | XMS_ITS | Clinical Summary ---
Author Organization [facility] Address [address] [place] [address] Care Team Providers Care Testing Shaking Shipping Name Role Phone Unavailable Primary Care Provider Unavailabl e Allergies Active Allergy Reactions Criticality Noted Date Comments Latex Rash Low 08/24/2020 Rash on hands Levofloxacin Swelling Low 09/05/2023 Lip swelling Medications levothyroxine 100 mcg tablet Take 100 mcg by mouth daily in the morning. Active metFORMIN ER 500 mg tablet,extended release 24 hr (GLUCOPHAGE XR) Take 500 mg by mouth 2 times daily with meals. Active tirzepatide (Mounjaro) 7.5 mg/0.5 mL Pen Injector Inject 15 mg by subcutaneous injection every 7 days. Saturday Active MULTIVITAMIN ORAL Take by mouth daily. Active magnesium oxide (MAG-OX) 400 mg (241.3 mg magnesium) tablet Take 400 mg by mouth daily at bedtime. Active Coenzyme Q10 400 mg Capsule Take by mouth daily at bedtime. Active CHOLECALCIFEROL , VITAMIN D3, ORAL Take by mouth daily. Active cyanocobalamin (VITAMIN B-12) 100 mcg tablet Take 100 mcg by mouth daily. Active lysine 500 mg tablet Take 500 mg by mouth daily at bedtime. 3 Active HYDROcodone-chin taminophen (NORCO) 5-325 mg tabletIndicatio ns:Incisional hernia, without obstruction or gangrene Take 1 Tablet by mouth every 4 hours as needed for moderate pain. Max Daily Amount: 6 Tablets 20 Tablet 07/27/2024 10:30 AM VOICE INTERCEPT TECHNICIAN 4 Active Active Problems Problem Noted Date Diagnosed Date Incisional hernia 07/27/2024 Gastric band malfunction 11/04/2023 Other dysphagia 11/04/2023 Encounters Date Type Department Care Team Description 05/11/2025 External Device Data STL ABSTRACTION Provider, Abstract 03/30/2025 External Device Data STL ABSTRACTION Provider, Abstract 03/16/2025 External Device Data STL ABSTRACTION Provider, Abstract 03/16/2025 External Device Data STL ABSTRACTION Provider, Abstract 03/16/2025 External Device Data STL ABSTRACTION Provider, Abstract 02/16/2025 External Device Data STL ABSTRACTION Provider, Abstract from Last 3 Months Social History Tobacco Use Types Packs/Day Years Used Date Smoking Tobacco: Former Cigarettes Tobacco Cessation:Counseling Given: Not Answered Alcohol Use Standard Drinks/Week Comments Yes 0 (1 standard drink = 0.6 oz pur e alcohol) social Feeling Safe Answer Date Recorded Are you in a relationship wi th someone who hurts you emotionally and/or physically? No 07/27/2024 Food Insecurity Answer Date Recorded Patient needs follow up regardin 12/17/2024 Transportation Needs Answer Date Record ed Patient needs follow up regardin 12/17/2024 Housing Stability Answer Date Recorded Social/Environmental Concerns No concerns Utility Needs Answer Date Recorded Patient needs follow up regardin 12/17/2024 Comments No Sex and Gender Information Value Date Recorded Sex Assigned at Not on file Legal Sex Female 1:49 PM CDT Gender Identity Not on file Sexual Orientation Not on file Last Filed Vital Signs Vital Sign Reading Time Taken Comments Blood Pressure 130/64 07/27/2024 10:41 AM VOICE INTERCEPT TECHNICIAN Pulse 77 07/27/2024 10:41 AM VOICE INTERCEPT TECHNICIAN Temperature 36.3 C (97.4 F) 07/27/2024 10:10 AM VOICE INTERCEPT TECHNICIAN Respiratory Rate 18 07/27/2024 10:41 AM VOICE INTERCEPT TECHNICIAN Oxygen Saturation 94% 07/27/2024 10:41 AM VOICE INTERCEPT TECHNICIAN Inhaled Oxygen Concentration - - Weight 94.8 kg (209 lb) 07/27/2024 6:00 AM VOICE INTERCEPT TECHNICIAN Height 167.6 cm (5' 6) 07/27/2024 6:00 AM VOICE INTERCEPT TECHNICIAN Body Mass Index 33.73 07/27/2024 6:00 AM VOICE INTERCEPT TECHNICIAN Plan of Treatment Health Maintenance Due Date Last Done Comments DIABETES ANNUAL FOOT EXAM 1979 DIABETES ANNUAL RETINAL EXAM 1979 DIABETES MICROALBUMIN ANNUAL SCREEN 1979 LDL CHOLESTEROL ANNUAL 1979 HPV/Cotest (21-29) 1982 HPV/Cotest (30-65) 1991 BREAST CANCER SCREENING 2001 COLORECTAL SCREENING 2006 Colorectal Cancer Screening 2006 FIT-DNA Q 3 years 2006 FIT/FOBT Q 1 year 2006 Flex Sig/CT Colonography Q 5 years 2006 ZOSTER VACCINE (1 of 2) 2011 CERVICAL CANCER SCREENING 05/25/2024 PAP SMEAR 05/25/2024 05/25/2021 DIABETES HBA1C Q 6 MONTHS 10/18/2024 04/17/2024 INFLUENZA VACCINE (#1) 2025 05/29/2022, 2020 DTAP/TDAP/TD VACCINES (2 - Td or Tdap) 01/19/2030 RSV VACCINE (60+ or ) (1 - 1-dose 75+ series) 2036 Medical Devices Implanted Type Area Ditching Machine Operating Engineer Device Identifier Shelf Expiration Date Model / Serial / Lot Patch Hernia Lg Circ 4 1/2in/Radha Implanted:Qty: 1 on 07/27/2024 by Finesse Duarte DO at [facility] Mesh N/A: Inguinal BARD DAVOL 10/23/2025 [id number] / / [id number] Description:1XADD-SW Insurance BC FEDERAL RX [facility] Advance Directives For more information, please contact: [phone] * Full Code (Latest Code Status on File) Date Activated Date Inactivated Comments 09/27/2023 6:43 AM 09/27/2023 10:17 AM
--- OUTSIDE RECORDS SUMMARY | 2025-05-18 08:25 | XMS_ITS | Clinical Summary ---
Author Organization [facility] Address [address] [place] [address] Care Team Providers Care Manager Food Name Role Phone Unavailable Primary Care Provider Unavailabl e Source Comments [facility],non-owned Affiliates and Associated Physician Practices is amultiple site organization consisting of ambulatory clinics and hospital sitesin [place], [place], [place] and [place]. This disclosure is being madepursuant to the Care Everywhere program and may not contain all information available regarding this patient. Last updated 18.[facility] Allergies Active Allergy Reactions Criticality Noted Date Comments Levofloxacin Swelling 01/20/2020 Penicillins Unknown 01/20/2020 Immunizations Immunization Administration Dates Next Due TDAP (7yrs+) 01/20/2020 Social History Tobacco Use Types Packs/Day Years Used Date Smoking Tobacco: Never Assessed Comments Unknown Sex and Gender Information Value Date Recorded Sex Assigned at Not on file Legal Sex Female 11:09 AM CDT Gender Identity Not on file Sexual Orientation Not on file Plan of Treatment Health Maintenance Due Date Last Done Comments COLOGUARD (AGES 45-75) - COL ON CA SCREENING 1961 COLON MONITORING 1961 COLONOSCOPY - COLON CA SCREENING 1961 CT COLONOGRAPHY - COLON CA SCREENING 1961 Colorectal Cancer Screening 1961 FIT - COLON CA SCREENING 1961 FLEX SIG - COLON CA SCREENING 1961 LIPID TESTING 1961 MAMMOGRAM 1961 HIV SCREENING 1976 HEPATITIS C SCREENING 03/27/1979 PNEUMOCOCCAL VACCINE 50+ (1 of 1 - PCV) 2011 ZOSTER VACCINE (1 of 2) 2011 DEPRESSION SCREENING 08/26/2024 COVID-19 VACCINE ( - 2023-2 5 season) 2025 INFLUENZA VACCINE (#1) 2025 DTAP/TDAP/TD VACCINES (2 - T d or Tdap) 01/19/2030 01/20/2020 Respiratory Syncytial Virus (RSV) Vaccine Pt: or over 60 yrs (1 - 1-dose 75+ series) 2036 HEPATITIS B VACCINE Aged Out No longe r eligible based on patient's age to complete this topic HIB VACCINE Aged Out No longer eligi ble based on patient's age to complete this topic HPV VACCINE Aged Out No longer eligi ble based on patient's age to complete this topic MENINGOCOCCAL (Group B) VACC INE SHARED DECISION-MAKING Aged Out No longer eligibl e based on patient's age to complete this topic MENINGOCOCCAL GROUPS A/C/Y/W VACCINE Aged Out No longer eligible b ased on patient's age to complete this topic Insurance [facility]
--- OUTSIDE RECORDS SUMMARY | 2025-05-18 08:25 | XMS_ITS | Clinical Summary ---
Author Organization [facility] Address [address] [place] [address] Care Team Providers Care Education Finance Processor Name Role Phone Ioana Worrell Primary Care Provider Manasa Stevens MD Unavailable [phone] Allergies Active Allergy Reactions Criticality Noted Date Comments Levofloxacin Swelling Medium 09/25/2018 Penicillins Rash Medium Medications SYNTHROID 100 mcg tablet 9 Active MAGNESIUM ORAL Take 500 mg by mouth. Active cholecalcifero l (VITAMIN D-3) 5,000 unit tablet Active coenzyme Q10 10 mg capsule Take 1 capsule (10 mg total) by mouth daily Active multivitamin tabletIndicati ons:Vitamin Deficiency Prevention Take 1 tablet by mouth Active blood-glucose sensor (FreeStyle Micky 3 Sensor) device USE DIRECTED FOR 14 DAYS AT A TIME TO MONITOR BLOOD GLUCOSE. Active metFORMIN XR (GLUCOPHAGE XR) 500 mg 24 hr tablet Take 1 tablet by mouth twice daily 180 tablet 5 Active Mounjaro 15 mg/0.5 mL pen injector injectionIndic ations:Type 2 diabetes mellitus without complication, without long-term current use of insulin (HCC) INJECT 1/2 (ONE-HALF) ML SUBCUTANEOUSLY ONCE A WEEK 4 mL 5 Active Active Problems Problem Noted Date Diagnosed Date Hypertension, essential 03/11/2025 Mixed hyperlipidemia 03/11/2025 Nonalcoholic hepatosteatosis 03/11/2025 Vitamin D deficiency 11/10/2024 Obesity, Class II, BMI 35-39.9 11/10/2024 Adult BMI 40.0-44.9 kg/sq m 11/10/2024 Adult BMI 32.0-32.9 kg/sq m 11/10/2024 Elevated C-reactive protein (CRP) 09/08/2024 Acquired hypothyroidism 09/08/2024 Obesity, Class I, BMI 30-34.9 06/11/2024 Assessment & Plan (06/11/2024 4:23 PM CDT): Reviewed most recent labs. Continue low carb, low glycemic diet. Perri is currently on Mounjaro and metformin. STOP Mounjaro on 07/15/24 before surgery Stop metformin 07/26/24 before surgery Can Restart Mounjaro and metformin later that week after surgery as long as you are feeling well. If you are having any nausea or side effects after surgery we can send in a lower dose to get you restarted. Continue medication at current dose. It was discussed at last visit about considering adding in Lomaira- pt wants to wait until after surgery to discuss medication changes. Reviewed importance of adequate protein intake. Reviewed recommendation/goal of >/= 150 minutes/week moderate intensity aerobic exercise. Type 2 diabetes mellitus wit hout complication, without long-term current use of insulin 06/11/2024 Assessment & Plan (06/11/2024 4:22 PM CDT): Continue low-carb (<150 g/day), low-glycemic diet. Reviewed most recent labs available. Elevated A1c meets criteria for type 2 diabetes Continue metformin and Mounjaro. Send us labs from PCP office that show your A1 of 6.7% that diagnosed you with diabetes so we can complete the PA when required from insurance for the Mounjaro. Exercise counseling 04/01/2024 Assessment & Plan (06/11/2024 4:04 PM CDT): Reviewed importance of adequate protein intake. Reviewed recommendation/goal of >/= 150 minutes/week moderate intensity aerobic exercise. Discussed okay to not track food/calories but that if they start to struggle or are not losing weight, this is a useful tool to help refocus. Discussed limiting calorie intake with restaurant options including planning meals prior to ordering, eating only half the meal, and substituting certain items. Metabolic disorder 04/01/2024 Assessment & Plan (06/11/2024 4:04 PM CDT): Reviewed most recent labs. Continue low carb, low glycemic diet. Perri is currently on Mounjaro and metformin. Continue medication at current dose. 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 014 Overview (11/30/2016): TOX MULTNOD GOIT NO ОЛЬГА Encounters Date Type Department Care Team Description 03/16/2025 11:00 AM CDT Office Visit [facility] Metabolic Weight Management [address] [place] [address] Medical Office [address], [address] [place] [address] Andrade Lozano MD Adult BMI 32.0-32.9 kg/sq m (Primary Dx); Encounter for weight management; Metabolic disorder; Obesity, Class II, BMI 35-39.9; Hypertension, essential; Mixed hyperlipidemia; Nonalcoholic hepatosteatosis; Dietary counseling; Exercise counseling from Last 3 Months Surgical History Surgery Date Site/Laterality Comments OTHER SURGICAL HISTORY Cholelithiasis: Cholecystectomy OTHER SURGICAL HISTORY Ovarian cyst: salpingo-oophorectomy Medical History Medical History Date Comments Cholelithiasis Cholelithiasis Cyst of ovary Ovarian cyst Depression Thyroid disease Family History Medical History Relation Name Comments Bladder Cancer Maternal Grandfather Kidney cancer Maternal Grandfather Thyroid disease Mother Thyroid diso rder; Breast cancer Mother's Sister aunt 1 Colon cancer Mother's Sister aunt2 Other breast Mother's Sister Aunt 5 breast Mother's Sister aunt 4 uterus Mother's Sister aunt 3 glioblastoma Sister Relation Name Status Comments Maternal Grandfather Mother Alive Mother's Sister Sister Social History Tobacco Use Types Packs/Day Years Used Date Smoking Tobacco: Former Cigarettes Smokeless Tobacco: Never Tobacco Cessation:Counseling Given: Not Answered Alcohol Use Standard Drinks/Week Comments Yes 0 (1 standard drink = 0.6 oz pur e alcohol) socially AUDIT-C Answer Date Recorded Q1: How often do you have a drink containing alc ohol? Monthly or less 03/16/2025 Q2: How many drinks containi ng alcohol do you have on a typical day when you are drinking? 1 or 2 03/16/2025 Q3: How often do you have si x or more drinks on one occasion? 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 Gender Identity Not on file Sexual Orientation Not on file Obstetrics History Last Filed Vital Signs Vital Sign Reading Time Taken Comments Blood Pressure 142/81 03/16/2025 11:07 AM CDT Pulse 77 03/16/2025 11:07 AM CDT Temperature 36.6 C (97.9 F) 03/16/2025 11:07 AM CDT Respiratory Rate 16 04/14/2024 9:24 AM CDT Oxygen Saturation 97% 03/16/2025 11: 07 AM CDT Inhaled Oxygen Concentration - - Weight 89.3 kg (196 lb 12.8 oz) 025 11:07 AM CDT Height 170.2 cm (5' 7) 03/16/2025 11:0 7 AM CDT Body Mass Index 30.82 03/16/2025 11:07 AM CDT Plan of Treatment Health Maintenance Due Date Last Done Comments Cervical Cancer Screening 1961 Colon Cancer Screening-Colonoscopy 1961 Depression Screening 1961 Hepatitis C Screening 1961 Dilated Eye Exam 1961 Foot Exam 1961 Hepatitis B Screening 1979 Regular Well Visit/Exam 18-64 1979 Pneumococcal vaccine <65 (1 of 2 - PCV) 1980 Zoster Vaccine (1 of 2) 2011 Breast Cancer Screening-Mammogram 05/03/2024 023 Influenza Vaccine (#1) 2025 05/29/2022, 2020 Hemoglobin A1C 05/06/2025 11/03/2024, 04/17/2024 Albumin Creatinine Ratio, Urine 11/03/2025 , 04/17/2024 Lipid Panel 11/03/2025 11/03/2024, 04/17/2024 eGFR 11/03/2025 11/03/2024, 04/17/2024 DTaP/Tdap/Td Vaccine (2 - Td or Tdap) 01/19/2030 Procedures Procedure Name Priority Date/Time Associated Diagnosis Comments ALBUMIN CREATININE RATIO, URINE Routine 11/03/2024 12:54 PM CDT Encounter for weight management Metabolic syndrome Acquired hypothyroidism Dietary counseling Exercise counseling Prediabetes Elevated C-reactive protein (CRP) Type 2 diabetes mellitus without complication, without long-term current use of insulin (HCC) COMPREHENSIVE METABOLIC PANEL Routine 11/03/2024 7:59 AM CDT Encounter for weight management Metabolic syndrome Acquired hypothyroidism Dietary counseling Exercise counseling Prediabetes Elevated C-reactive protein (CRP) Type 2 diabetes mellitus without complication, without long-term current use of insulin (HCC) HEMOGLOBIN A1C Routine 11/03/2024 7:59 AM CDT Encounter for weight management Metabolic syndrome Acquired hypothyroidism Dietary counseling Exercise counseling Prediabetes Elevated C-reactive protein (CRP) Type 2 diabetes mellitus without complication, without long-term current use of insulin (HCC) LIPID PANEL Routine 11/03/2024 7:59 AM CDT Encounter for weight management Metabolic syndrome Acquired hypothyroidism Dietary counseling Exercise counseling Prediabetes Elevated C-reactive protein (CRP) Type 2 diabetes mellitus without complication, without long-term current use of insulin (HCC) from Last 3 Months or Most Recently Relevant to Health Maintenance Results * Albumin Creatinine Ratio, Urine (11/03/2024 12:54 PM CDT) Creatinine, ur 125 20 - 275 mg/dL [facility] Microalbumin, ur 1.2 See Note: mg/dL [facility] Comment: Reference Range: Reference Range Not established Microalbumin/creat ratio 10 <30 mg/g creat [facility] Comment: The ADA defines abnormalities in albumin excretion as follows: Albuminuria Category Result (mg/g creatinine) Normal to Mildly increased <30 Moderately increased 30-299 Severely increased > OR = 300 The ADA recommends that at least two of three specimens collected within a 3-6 month period be abnormal before considering a patient to be within a diagnostic category. Urine 11/03/2024 12:5 4 PM CDT 11/03/2024 12:54 PM CDT Narrative [facility] - 11/04/2024 7:23 AM CDT SPLIT 11/03/2024 FROM [id number] Andrade Lozano MD LAB URINE ORDERABLES Final Res ult [facility] [address] [place] [address] * Hemoglobin A1c (11/03/2024 7:59 AM CDT) Hgb A1C 5.6 <5.7 % of total Hgb [facility] Comment: For the purpose of screening for the presence of diabetes: <5.7% Consistent with the absence of diabetes 5.7-6.4% Consistent with increased risk for diabetes (prediabetes) > or =6.5% Consistent with diabetes This assay result is consistent with a decreased risk of diabetes. Currently, no consensus exists regarding use of hemoglobin A1c for diagnosis of diabetes in children. According to [place] Diabetes Association (ADA) guidelines, hemoglobin A1c <7.0% represents optimal control in non- diabetic patients. Different metrics may apply to specific patient populations. Standards of Medical Care in Diabetes(ADA). Blood 11/03/2024 7:59 AM CDT 11/03/2024 8:01 AM CDT Andrade Lozano MD LAB BLOOD ORDERABLES Final Res ult [facility] [address] [place] [address] * (ABNORMAL) Lipid panel (11/03/2024 7:59 AM CDT) Cholesterol 172 <200 mg/dL [facility] HDL 44(L) > OR = 50 mg/dL [facility] Triglycerides 134 <150 mg/dL [facility] LDL 105(H) mg/dL (calc) [facility] Comment: Reference range: <100 Desirable range <100 mg/dL for primary prevention; <70 mg/dL for patients with CHD or diabetic patients with > or = 2 CHD risk factors. LDL-C is now calculated using the Tejinder calculation, which is a validated novel method providing better accuracy than the Friedewald equation in the estimation of LDL-C. Delmar SS et al. RAMIRO. 2013;310(19): 6019-5243 (http://education.iCouch/faq/SMD237) Chol/HDL ratio 3.9 <5.0 (calc) [facility] Non-HDL, (LDL+VLDL) 128 <130 mg/dL (calc) [facility] Comment: For patients with diabetes plus 1 major ASCVD risk factor, treating to a non-HDL-C goal of <100 mg/dL (LDL-C of <70 mg/dL) is considered a therapeutic option. Blood 11/03/2024 7:59 AM CDT 11/03/2024 8:01 AM CDT us Andrade Lozano MD LAB BLOOD ORDERABLES Final Res ult [facility] [address] [place] [address] * (ABNORMAL) Comprehensive metabolic panel (11/03/2024 7:59 AM CDT) Pathologist [facility] Glucose 102(H) 65 - 99 mg/dL [facility] Comment: Fasting reference interval For someone without known diabetes, a glucose value between 100 and 125 mg/dL is consistent with prediabetes and should be confirmed with a follow-up test. BUN 20 7 - 25 mg/dL [facility] Creatinine 0.50 0.50 - 1.05 mg/dL [facility] eGFR 105 > OR = 60 mL/min/1.7 3m2 [facility] BUN/creat ratio SEE NOTE: 6 - 22 (calc) [facility] Comment: Not Reported: BUN and Creatinine are within reference range. Sodium 137 135 - 146 mmol/L [facility] Potassium, pl 4.1 3.5 - 5.3 mmol/L [facility] Chloride 102 98 - 110 mmol/L [facility] CO2 25 20 - 32 mmol/L [facility] Calcium 9.0 8.6 - 10.4 mg/dL [facility] Protein, sr 6.8 6.1 - 8.1 g/dL [facility] Albumin 4.5 3.6 - 5.1 g/dL [facility] GLOBULIN 2.3 1.9 - 3.7 g/dL (calc) [facility] Alb/glob ratio 2.0 1.0 - 2.5 (calc) [facility] Bilirubin, total 0.4 0.2 - 1.2 mg/dL [facility] Alk phos 65 37 - 153 U/L [facility] AST 15 10 - 35 U/L [facility] ALT (SGPT) 16 6 - 29 U/L [facility] Blood 11/03/2024 7:59 AM CDT 11/03/2024 8:01 AM CDT us Andrade Lozano MD LAB BLOOD ORDERABLES [place] [address] [place] [address] from Last 3 Months or Most Recently Relevant to Health Maintenance Insurance [facility] FEDERAL [facility] FEDERAL Care Teams Education Finance Processor Relationship Specialty Start Date End Date Ioana Worrell PA PCP - General Physician Produce Shipper 09/08/18 Manasa Stevens MD [address] [place] [address] Referring Physician Internal Medicine 09/25/18
--- OUTSIDE RECORDS SUMMARY | 2025-05-18 08:26 | XMS_ITS | Patient Health Record ---
Author Organization [facility] Address [address] [place], [place] [address] Care Team Providers Care Pile Driver Operator Barge Mounted Name Role Phone Duarte Juan GRAJEDAew Unavailable [phone] Jon Conway PA-C Unavailable [phone] Allergies Allergen (clinical drug ingredient) Drug/Non Drug Allergy documented on EMR Reaction Allergy Type Onset Date Status levofloxacin levoFLOXacin Unknown Drug Allergy A ctive Reason For Referral No Information Medications Medication SIG (Take, Route, Frequency, Duration) Notes Start Date End Date Status prednisoLONE Acetate 1 % Ophthalmic 09/06/2023 Not-Taking Omeprazole 20 MG Oral 09/06/2023 No t-Taking Tobramycin 0.30% Ophthalmic 09/06/2023 N ot-Taking predniSONE 20 MG Oral 09/06/2023 No t-Taking L-Lysine 500 mg Oral 09/06/2023 Act genevieve Magnesium Glycinate *Pick strength-form from [facility] for eRX* 09/06/2023 Not-Taking CoQ-10 100 MG Oral 09/06/2023 Activ e metFORMIN HCl ER 500 MG Oral 09/06/2023 Not-Taking metFORMIN HCl 500 MG Oral 09/06/2023 Active Mounjaro 2.5 MG/0.5ML Subcutaneous 09/06/2023 Not-Taking Levothyroxine Sodium 100 MCG Oral 09/06/2023 Active Mounjaro 10 MG/0.5ML Subcutaneous 09/06/2023 Not-Taking Naxrabum-Zhqgliund-R C 3.5-84305-2 Otic 09/06/2023 Not-Taking metroNIDAZOLE 500 MG Oral 09/06/2023 Not-Taking Nitrofurantoin Monohyd Macro 100 MG Oral 09/06/2023 Not-Jeramie ing Cephalexin 500 MG Oral 09/06/2023 N ot-Taking DAPAGLIFLOZIN PROPANEDIOL 5 MG TABLET *[facility] and Interaction Alerts* 09/06/2023 Unknown ACCU-CHEK SOFTCLIX MISCELLANEOUS *Reorder from [facility] for eRx and Interaction Alerts* 09/06/2023 Unknown Clindamycin HCl 300 MG Oral 09/06/2023 Not-Taking Clarithromycin 500 MG Oral 09/06/2023 Not-Taking Escitalopram Oxalate 5 MG Oral 09/06/2023 Not-Taking Doxycycline Hyclate 100 MG Oral 09/06/2023 Not-Taking Methocarbamol 750 MG Oral 09/06/2023 Not-Taking HYDROcodone-Acetamin ophen 5-325 MG Oral 09/06/2023 Not-Taking ACCU-CHEK GUIDE TEST STRIPS *[facility] and Interaction Alerts* 09/06/2023 Unknown Mounjaro 12.5 MG/0.5ML Subcutaneous 09/06/2023 Active ACCU-CHEK GUIDE MONITOR SYSTEM MISCELLANEOUS *[facility] and Interaction Alerts* 09/06/2023 Unknown Thiamine HCl 250 mg ORAL 09/06/2023 Active Mounjaro 7.5 MG/0.5ML Subcutaneous 09/06/2023 Unknown Benzonatate 200 MG Oral 09/06/2023 Not-Taking Amoxicillin-Pot Clavulanate 875-125 MG Oral 09/06/2023 Not-Taking Problems Problem Type SNOMED Code ICD Code Onset Dates Problem Status W/U Status Risk Notes Problem Obesity (281967805) Obesity (BMI 30-39.9) (E66.9) Active confirmed Problem Irreducible hernia of anterior abdominal wall (disorder) (357652961) Incarcerated ventral hernia (K43.6) Active confirmed Problem Helicobacter pylori (42782246) Helicobacter pylori [H. pylori] as the cause of diseases classified elsewhere (B96.81) 10/03/19 24 Active confirmed Problem Type II diabetes mellitus without complication (885659868) Type 2 diabetes mellitus without complications (E11.9) 11/20/19 24 Active confirmed Problem Morbid obesity (disorder) (563735285) Morbid (severe) obesity due to excess calories (E66.01) 09/06/19 Active confirmed Problem Hyperlipidemia (97870361) Hyperlipidemia, unspecified (E78.5) 09/06/19 Active confirmed Problem Obstructive sleep apnea syndrome (disorder) (17118512) Obstructive sleep apnea (adult) (pediatric) (G47.33) 08/14/20 Active confirmed Problem Essential hypertension (51065867) Essential (primary) hypertension (I10) 09/06/19 Active confirmed Problem Gastro-esophageal reflux disease without esophagitis (149864034) Gastro-esophagea l reflux disease without esophagitis (K21.9) 09/06/19 Active confirmed Problem Abnormal weight gain (435269362) Abnormal weight gain (R63.5) 09/06/19 Active confirmed Problem Diabetes mellitus screening (635593154) Encounter for screening for diabetes mellitus (Z13.1) 09/06/19 Active confirmed Problem Postoperative care (188738174) Encounter for other specified surgical aftercare (Z48.89) 11/20/19 Active confirmed Problem History of bariatric surgical procedure (490524239) Bariatric surgery status (Z98.84) 08/14/20 Active confirmed Problem Gastroesophageal reflux disease with esophagitis (disorder) (956968282) Gastro-esophagea l reflux disease with esophagitis, without bleeding (K21.00) 11/20/19 Active confirmed Vital Signs Heart Rate 72 /min 08/06/2024 Temperature 97.9 degrees Fahrenheit 08/06/2024 Oximetry 98 % 08/06/2024 Blood pressure diastolic 81 mm Hg 08/06/2024 Height-cm 168.91 cm 08/06/2024 Weight-kg 97.07 kg 08/06/2024 Height 66.50 in 08/06/2024 Blood pressure systolic 131 mm Hg 08/06/2024 Weight 214 lbs 08/06/2024 BMI 34.02 kg/m2 08/06/2024 Encounters Encounter Location Date Provider Diagnosis [facility] [address] [place] [address] 07/27/2024 [facility] [address] [place], [place] [id number] 08/06/2024 Jon Conway Other specified postprocedural states Z98.890 and Personal history of other diseases of the digestive system Z87.19 Assessments Encounter Date Diagnosis (ICD Code) Assessment Notes Treatment Notes Treatment Clinical Notes Section Notes 08/06/2024 Personal history of other diseases of the digestive system (ICD-10 - Z87.19) 08/06/2024 Other specified postprocedural states (ICD-10 - Z98.890) Plan Of Treatment No Information Insurance Providers Payer Name Payer Address Payer Phone Subscriber Number Group Number Insured Name Patient Relationship to Insured Coverage Start Date Coverage End Date [employer] - Fep [address] [place] [address] [id number] MICHAEL LUNA Self - patient is the insured Medical (General) History Medical History History ICD Code Problems: Abnormal weight gain Essential hypertension Gastric reflux Gastroesophageal reflux disease Hyperlipidemia Morbid obesity Obstructive sleep apnea syndrome Severe obesity Type 2 diabetes mellitus without complic ation , Diabetes Mellitus : Yes Hypo thyroidism : Yes 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 Duarte 07/27/2024 Removal of gastric band ([id number]) Dr. Finesse Duarte; [facility] 11/04/2023 Thyroidectomy ([id number]) 08/26/2016 Laparoscopic adjustable gastric banding ([id number]) (removed 10/2023) 08/26/2011 Oophorectomy (97936621) left ovary 08/26 Cholecystectomy (26053177) 08/26/1987
== END 2025-05-18 08:09 | disposition home or self-care (01) ==
DX: Z12.31 Encounter for screening mammogram for malignant neoplasm of breast (principal)
CPT/HCPCS: 77063; 77067

== ENCOUNTER 2025-05-31 07:56 | Outpatient (CLI) | payer BC, SELFPAY ==
--- OUTSIDE RECORDS SUMMARY | 2024-01-18 04:00 | XMS_ITS ---
Author Organization [facility] Address [address] [facility] [address] [place], [place] [phone] Care Team Providers Care Child Care Development Specialist Name Role Phone Finesse Duarte DO [phone] Migration, Provider Unavailable Unavailable REASON FOR VISIT EMR-Abiodun Encounters Encounter Location Date Provider Diagnosis [facility] [address] [facility] [address] [place], [place] [id number] 01/18/2024 Provider Migration Plan Of Treatment No Information Progress Notes * MICHAEL LUNA KDOB:1959 (65 yo F)Acc No.[id number]:01/18/2024 Patient: MICHAEL ZEPEDA :1960 A ge:63 Y S ex:Female Address:[place], [address] Subjective: * Chief Complaints: * E MR-Abiodun * Medical History: * Surgical History: * Hospitalization/Major Diagno stic Procedure: * Medications: Objective: * Vitals: Past Vitals:* 09/06/2023 Wt: 227.00, BMI: 36.1 * Physical Examination: Assessment: Plan: * Treatment: * Procedure Codes: * * Date:
--- OUTSIDE RECORDS SUMMARY | 2024-01-19 04:00 | XMS_ITS ---
Author Organization [facility] Address [address] [place], [place] [id number] Care Team Providers Care Lead Web Developer Name Role Phone Finesse Duarte DO Unavailable [phone] Migration, Provider Unavailable Unavailable Allergies Allergen (clinical drug ingredient) Drug/Non Drug Allergy documented on EMR Reaction Allergy Type Onset Date Status Substance with penicillin structure and antibacterial mechanism of action (substance) Penicillins Unknown Drug Allergy 08/14/2023 Active REASON FOR VISIT EMR-Abiodun Medications Medication SIG (Take, Route, Frequency, Duration) Notes Start Date End Date Status ACCU-CHEK SOFTCLIX MISCELLANEOUS *Reorder from [facility] for eRx and Interaction Alerts* 09/06/2023 Active DAPAGLIFLOZIN PROPANEDIOL 5 MG TABLET *Reorder from [facility] for eRx and Interaction Alerts* 09/06/2023 Active ACCU-CHEK GUIDE MONITOR SYSTEM MISCELLANEOUS *Reorder from [facility] for eRx and Interaction Alerts* 09/06/2023 Active ACCU-CHEK GUIDE TEST STRIPS *Reorder from [facility] for eRx and Interaction Alerts* 09/06/2023 Active Mounjaro 7.5 MG/0.5ML Subcutaneous 09/06/2023 Active Magnesium Glycinate *Pick strength-form from [facility] for eRX* 09/06/2023 Active Mounjaro 10 MG/0.5ML Subcutaneous 09/06/2023 Active metFORMIN HCl ER 500 MG Oral 09/06/2023 Active Mounjaro 2.5 MG/0.5ML Subcutaneous 09/06/2023 Active Mounjaro 12.5 MG/0.5ML Subcutaneous 09/06/2023 Active Tobramycin 0.30% Ophthalmic 09/06/2023 A ctive predniSONE 20 MG Oral 09/06/2023 Ac tive Thiamine HCl 250 mg ORAL 09/06/2023 Active Omeprazole 20 MG Oral 09/06/2023 Ac tive prednisoLONE Acetate 1 % Ophthalmic 09/06/2023 Active metroNIDAZOLE 500 MG Oral 09/06/2023 Active metFORMIN HCl 500 MG Oral 09/06/2023 Active Methocarbamol 750 MG Oral 09/06/2023 Active Gnrgczpd-Fqkashadj-ML 3.5-07129-6 Otic 09/06/2023 Active Nitrofurantoin Monohyd Macro 100 MG Oral 09/06/2023 Active L-Lysine 500 mg Oral 09/06/2023 Act genevieve Levothyroxine Sodium 100 MCG Oral 09/06/2023 Active Escitalopram Oxalate 5 MG Oral 09/06/2023 Active HYDROcodone-Acetamino phen 5-325 MG Oral 09/06/2023 Active Doxycycline Hyclate 100 MG Oral 09/06/2023 Active Cephalexin 500 MG Oral 09/06/2023 A ctive Clarithromycin 500 MG Oral 09/06/2023 Active Benzonatate 200 MG Oral 09/06/2023 Active CoQ-10 100 MG Oral 09/06/2023 Activ e Clindamycin HCl 300 MG Oral 09/06/2023 Active Amoxicillin-Pot Clavulanate 875-125 MG Oral 09/06/2023 Active Encounters Encounter Location Date Provider Diagnosis [facility] [address] [facility] [address] [place], [place] [phone] 01/19/2024 Provider Migration Plan Of Treatment No Information Progress Notes * MICHAEL LUNA KDOB:1959 (65 yo F)Acc No.[id number]:01/19/2024 Patient: IVIS ZEPEDAYL John :1960 A ge:63 Y S ex:Female Address:[address] [place] [address], [facility] [address] Subjective: * Chief Complaints: * E MR-Abiodun * Medical History: * Surgical History: C holecystectomy (97789295) 08/26/1987Oophorectomy ([id number]) left ovary 08/26/2004Laparoscopic adjustable gastric banding ([id number]) (removed 10/2023) 08/26/2011Thyroidectomy ([id number]) 08/26/2016Removal of gastric band ([id number]) Dr. Finesse Duarte; [facility] 11/04/2023 * Hospitalization/Major Diagno stic Procedure: * Social History: M igrated Social History: M igrated Social History: Tobacco Years: Former smoker 08/07/2023. * Medications: T akingAmoxicillin-Pot Clavulanate 875-125 MG Tablet Oral Benzonatate 200 MG Capsule Oral Cephalexin 500 MG Capsule Oral Clarithromycin 500 MG Tablet Oral Clindamycin HCl 300 MG Capsule Oral CoQ-10 100 MG Capsule Oral Doxycycline Hyclate 100 MG Tablet Oral Escitalopram Oxalate 5 MG Tablet Oral HYDROcodone-Acetaminophen 5-325 MG Tablet Oral L-Lysine 500 mg Tablet Oral Levothyroxine Sodium 100 MCG Tablet Oral metFORMIN HCl 500 MG Tablet Oral Methocarbamol 750 MG Tablet Oral metroNIDAZOLE 500 MG Tablet Oral Aigrfpdx-Dwqrhmcuf-VQ 3.5-80933-4 Suspension Otic Nitrofurantoin Monohyd Macro 100 MG Capsule Oral Omeprazole 20 MG Capsule Delayed Release Oral prednisoLONE Acetate 1 % Suspension Ophthalmic predniSONE 20 MG Tablet Oral Thiamine HCl 250 mg TABLET ORAL Tobramycin 0.30% Solution Ophthalmic metFORMIN HCl ER 500 MG Tablet Extended Release 24 Hour Oral Magnesium Glycinate , Notes to Pharmacist: *Pick strength-form from [facility] for eRX*Mounjaro 10 MG/0.5ML Solution Pen-injector Subcutaneous Mounjaro 12.5 MG/0.5ML Solution Pen-injector Subcutaneous Mounjaro 2.5 MG/0.5ML Solution Pen-injector Subcutaneous Mounjaro 7.5 MG/0.5ML Solution Pen-injector Subcutaneous ACCU-CHEK GUIDE MONITOR SYSTEM Kit MISCELLANEOUS , Notes to Pharmacist: *Reorder from [facility] for eRx and Interaction Alerts*ACCU-CHEK GUIDE TEST STRIPS , Notes to Pharmacist: *Reorder from [facility] for eRx and Interaction Alerts*ACCU-CHEK SOFTCLIX EACH MISCELLANEOUS , Notes to Pharmacist: *Reorder from [facility] for eRx and Interaction Alerts*DAPAGLIFLOZIN PROPANEDIOL 5 MG TABLET , Notes to Pharmacist: *Reorder from [facility] for eRx and Interaction Alerts*Taking Amoxicillin-Pot Clavulanate 875-125 MG Tablet Oral Taking Benzonatate 200 MG Capsule Oral Taking Cephalexin 500 MG Capsule Oral Taking Clarithromycin 500 MG Tablet Oral Taking Clindamycin HCl 300 MG Capsule Oral Taking CoQ-10 100 MG Capsule Oral Taking Doxycycline Hyclate 100 MG Tablet Oral Taking Escitalopram Oxalate 5 MG Tablet Oral Taking HYDROcodone-Acetaminophen 5-325 MG Tablet Oral Taking L-Lysine 500 mg Tablet Oral Taking Levothyroxine Sodium 100 MCG Tablet Oral Taking metFORMIN HCl 500 MG Tablet Oral Taking Methocarbamol 750 MG Tablet Oral Taking metroNIDAZOLE 500 MG Tablet Oral Taking Wpghhnju-Qzkucnmex-LM 3.5-22748-3 Suspension Otic Taking Nitrofurantoin Monohyd Macro 100 MG Capsule Oral Taking Omeprazole 20 MG Capsule Delayed Release Oral Taking prednisoLONE Acetate 1 % Suspension Ophthalmic Taking predniSONE 20 MG Tablet Oral Taking Thiamine HCl 250 mg TABLET ORAL Taking Tobramycin 0.30% Solution Ophthalmic Taking metFORMIN HCl ER 500 MG Tablet Extended Release 24 Hour Oral Taking Magnesium Glycinate , Notes to Pharmacist: *Pick strength-form from [facility] for eRX*Taking Mounjaro 10 MG/0.5ML Solution Pen-injector Subcutaneous Taking Mounjaro 12.5 MG/0.5ML Solution Pen-injector Subcutaneous Taking Mounjaro 2.5 MG/0.5ML Solution Pen-injector Subcutaneous Taking Mounjaro 7.5 MG/0.5ML Solution Pen-injector Subcutaneous Taking ACCU-CHEK GUIDE MONITOR SYSTEM Kit MISCELLANEOUS , Notes to Pharmacist: *Reorder from [facility] for eRx and Interaction Alerts*Taking ACCU-CHEK GUIDE TEST STRIPS , Notes to Pharmacist: *Reorder from [facility] for eRx and Interaction Alerts*Taking ACCU-CHEK SOFTCLIX EACH MISCELLANEOUS , Notes to Pharmacist: *Reorder from [facility] for eRx and Interaction Alerts*Taking DAPAGLIFLOZIN PROPANEDIOL 5 MG TABLET , Notes to Pharmacist: *Reorder from [facility] for eRx and Interaction Alerts* * Allergies: P enicillins: Allergy - Onset Date 08/14/2023 Objective: * Vitals: Past Vitals:* 09/06/2023 Wt: 227.00, BMI: 36.1 * Physical Examination: Assessment: Plan: * Treatment: * Procedure Codes: * * Date:
--- OUTSIDE RECORDS SUMMARY | 2024-07-27 02:30 | XMS_ITS ---
Author Organization [facility] Address [address] [place], [place] [phone] Care Team Providers Care Commissioning Agent Name Role Phone Finesse Duarte DO [phone] REASON FOR VISIT hernia @730a pt aware Encounters Encounter Location Date Provider Diagnosis [facility] [address] [facility] [address] 07/27/2024 Finesse Duarte Plan Of Treatment No Information Progress Notes * MICHAEL LUNA KDOB:1959 (65 yo F)Acc No.[id number]:07/27/2024 Patient: MICHAEL ZEPEDA Provider: Guilherme Duarte DO :1960 A ge:64 Y S ex:Female Date:07/27/2024 Address:[address] [place], [place] [phone] Subjective: * Chief Complaints: * 1 . Hernia @730a pt aware. * Medical History: Objective: * Vitals: Past Vitals:* 04/23/2024 Wt:217, BMI:34.5, BP:120/78 * 09/06/2023 Wt: 227.00, BMI: 36.1 Assessment: Plan: * Treatment: * Billing Information: * Visit Code: * Procedure Codes: * Electronic signature of Franck Duarte DO, [id number] on 05/31/2025 at 08:06 AM CDT Sign off status: Pending * Provider: Guilherme Duarte DO Date: 09/27/2023 Generated for Printi ng/Faxing/eTransmitting on: 1 08:06 AM CDT
--- NOTE | 2025-05-31 08:00 | ECG_ITS ---
Test Date: 2025-05-31 08:23:21 Measurements Intervals [place] Rate: 69 P: 25 [place]: 149 QRS: 6 QRSD: 100 T: 29 QT: 394 QTc: 423 Interpretive Statements SINUS RHYTHM POOR R WAVE PROGRESSION BASELINE ARTIFACT- I, II, III, AVR, AVL, AVF BORDERLINE ECG No previous ECG available for comparison Electronically Signed On 05-31-2025 08:24:44 CDT by Rocky Ashton D.O.
--- OUTSIDE RECORDS SUMMARY | 2025-05-31 08:06 | XMS_ITS | Clinical Summary ---
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 file Not on file Not on file Last Filed Vital Signs Vital Sign Reading Time Taken Comments Blood Pressure 132/78 09/21/2020 1:52 PM RADIOLOGY SUPERVISOR saran e bp Pulse 75 08/24/2020 10:07 AM RADIOLOGY SUPERVISOR Temperature - - Respiratory Rate - - Oxygen Saturation 98% 08/24/2020 10: 07 AM RADIOLOGY SUPERVISOR Inhaled Oxygen Concentration - - Weight 100.9 kg (222 lb 8 oz) 09/21/2020 1:52 PM RADIOLOGY SUPERVISOR home scale Height 170.2 cm (5' 7) 09/21/2020 1:52 PM RADIOLOGY SUPERVISOR Body Mass Index 34.85 09/21/2020 1:52 PM RADIOLOGY SUPERVISOR Plan of Treatment Health Maintenance Due Date [...] patient's age to complete this topic Insurance [facility] Care Teams Air Press Operator Relationship Specialty Start Date End Date Josh Ardon MD [address] [address] PCP - General INTERNAL MEDICINE 07/05/20
--- OUTSIDE RECORDS SUMMARY | 2025-05-31 08:06 | XMS_ITS | Clinical Summary ---
Author Organization [employer] [place] Address [address] [place] [address] Care Team Providers Care Virtualization Engineer Name Role Phone Unavailable Primary Care Provider [...] 6 Tablets 20 Tablet 07/27/2024 10:30 AM KING MAKER 4 Active Active Problems Problem Noted Date [...] Comments Blood Pressure 130/64 07/27/2024 10:41 AM KING MAKER Pulse 77 07/27/2024 10:41 AM KING MAKER Temperature 36.3 C (97.4 F) 07/27/2024 10:10 AM KING MAKER Respiratory Rate 18 07/27/2024 10:41 AM KING MAKER Oxygen Saturation 94% 07/27/2024 10:41 AM KING MAKER Inhaled Oxygen Concentration - - Weight 94.8 kg (209 lb) 07/27/2024 6:00 AM KING MAKER Height 167.6 cm (5' 6) 07/27/2024 6:00 AM KING MAKER Body Mass Index 33.73 07/27/2024 6:00 AM KING MAKER Plan of Treatment Health Maintenance Due Date [...] series) 2036 Medical Devices Implanted Type Area Mower Sharpener Device Identifier Shelf Expiration Date Model / Serial / Lot Patch Hernia Lg Circ 4 1/2in/Radha Implanted:Qty: 1 on 07/27/2024 by Finesse Duarte DO at [facility] Mesh N/A: Inguinal BARD DAVOL 10/23/2025 [id number] / / [id number] Description:1XADD-SW Insurance BC FEDERAL RX [facility] [place] Advance Directives For more information, please contact: [phone] * Full Code (Latest Code Status on File) Date Activated Date Inactivated Comments 09/27/2023 6:43 AM 09/27/2023 10:17 AM
--- OUTSIDE RECORDS SUMMARY | 2025-05-31 08:06 | XMS_ITS | Clinical Summary ---
Author Organization [facility] Address [address] [place] [address] Care Team Providers Care Handling Tech Name Role Phone Ioana Worrell Primary Care Provider Manasa Stevens MD Unavailable [phone] Allergies Active Allergy Reactions Criticality Noted Date Comments Levofloxacin Swelling Medium 09/25/2018 Penicillins Rash Medium Medications SYNTHROID 100 mcg tablet 09/14/19 19 Active MAGNESIUM ORAL Take 500 mg by mouth. Active cholecalcifer ol (VITAMIN D-3) 5,000 unit tablet Active coenzyme Q10 10 mg capsule Take 1 capsule (10 mg total) by mouth daily Active multivitamin tabletIndicat ions:Vitamin Deficiency Prevention Take 1 tablet by mouth Active blood-glucose sensor (FreeStyle Micky 3 Sensor) device USE DIRECTED FOR 14 DAYS AT A TIME TO MONITOR BLOOD GLUCOSE. Active metFORMIN XR (GLUCOPHAGE XR) 500 mg 24 hr tablet Take 1 tablet by mouth twice daily 180 tablet 04/01/20 25 Active Mounjaro 15 mg/0.5 mL pen injector injectionIndi cations:Type 2 diabetes mellitus without complication, without long-term current use of insulin (HCC) INJECT 15MG SUBCUTANEOUSLY ONCE WEEKLY 8 mL 05/28/20 25 Active Mounjaro 15 mg/0.5 mL pen injector injectionIndi cations:Type 2 diabetes mellitus without complication, without long-term current use of insulin (HCC) INJECT 1/2 (ONE-HALF) ML SUBCUTANEOUSLY ONCE A WEEK 4 mL 04/07/20 25 2024 Discontinued Active Problems Problem Noted Date Diagnosed Date [...] Description 03/16/2025 11:00 AM CDT Office Visit [facility] Medicine Metabolic Weight Management [facility] [address] [place] [address] Andrade Lozano MD Adult BMI [...] on file Legal Sex Female 12:45 AM BARBACK Gender Identity Not on file Sexual Orientation [...] 11/04/2024 7:23 AM CDT SPLIT 11/03/2024 FROM [id number] Andrade Lozano MD LAB URINE ORDERABLES Final Res ult Performing Organization Address City/[facility]/ZIP Co de Phone Number [facility] [address] [place] [address] * Hemoglobin A1c (11/03/2024 7:59 AM CDT) Hgb A1C 5.6 <5.7 % of total Hgb [facility] Comment: For the purpose of screening for the presence of diabetes: <5.7% Consistent with the absence of diabetes 5.7-6.4% Consistent with increased risk for diabetes (prediabetes) > or =6.5% Consistent with diabetes This assay result is consistent with a decreased risk of diabetes. Currently, no consensus exists regarding use of hemoglobin A1c for diagnosis of diabetes in children. According to [place] Diabetes Association (ADA) guidelines, hemoglobin A1c <7.0% represents optimal control in non- diabetic patients. Different metrics may apply to specific patient populations. Standards of Medical Care in Diabetes(ADA). Blood 11/03/2024 7:59 AM CDT 11/03/2024 8:01 AM CDT us Andrade Lozano MD LAB BLOOD ORDERABLES Final Res ult Performing Organization Address City/[facility]/ZIP Co de Phone Number [facility] [address] [place] [address] * (ABNORMAL) Lipid panel (11/03/2024 7:59 AM CDT) Cholesterol 172 <200 mg/dL [facility] HDL 44(L) > OR = 50 mg/dL [facility] Triglycerides 134 <150 mg/dL [facility] LDL 105(H) mg/dL (calc) [facility] Comment: Reference range: <100 Desirable range <100 mg/dL for primary prevention; <70 mg/dL for patients with CHD or diabetic patients with > or = 2 CHD risk factors. LDL-C is now calculated using the Delmar-Saldana calculation, which is a validated novel method providing better accuracy than the Friedewald equation in the estimation of LDL-C. Delmar SS et al. RAMIRO. 2013;310(17): 0284-1145 (http://education.SPO Medical/faq/WVW474) Chol/HDL ratio 3.9 <5.0 (calc) [facility] Non-HDL, (LDL+VLDL) 128 <130 mg/dL (calc) [facility] Comment: For patients with diabetes plus 1 major ASCVD risk factor, treating to a non-HDL-C goal of <100 mg/dL (LDL-C of <70 mg/dL) is considered a therapeutic option. Blood 11/03/2024 7:59 AM CDT 11/03/2024 8:01 AM CDT us Andrade Lozano MD LAB BLOOD ORDERABLES Final Res ult [facility] [address] [place] [address] * (ABNORMAL) Comprehensive metabolic panel (11/03/2024 7:59 AM CDT) Glucose 102(H) 65 - 99 mg/dL [facility] Comment: Fasting reference interval For someone without known diabetes, a glucose value between 100 and 125 mg/dL is consistent with prediabetes and should be confirmed with a follow-up test. BUN 20 7 - 25 mg/dL [facility] Creatinine 0.50 0.50 - 1.05 mg/dL [facility] eGFR 105 > OR = 60 mL/min/1.7 3m2 [facility] BUN/creat ratio SEE NOTE: 6 - 22 (calc) [facility] Comment: Not Reported: BUN and Creatinine are within reference range. Sodium 137 135 - 146 mmol/L [facility] Potassium, pl 4.1 3.5 - 5.3 mmol/L [facility] Chloride 102 98 - 110 mmol/L [facility] CO2 25 20 - 32 mmol/L [facility] Calcium 9.0 8.6 - 10.4 mg/dL [facility] Protein, sr 6.8 6.1 - 8.1 g/dL [facility] Albumin 4.5 3.6 - 5.1 g/dL [facility] GLOBULIN 2.3 1.9 - 3.7 g/dL (calc) [facility] Alb/glob ratio 2.0 1.0 - 2.5 (calc) [facility] Bilirubin, total 0.4 0.2 - 1.2 mg/dL [facility] Alk phos 65 37 - 153 U/L [facility] AST 15 10 - 35 U/L [facility] ALT (SGPT) 16 6 - 29 U/L [facility] Blood 11/03/2024 7:59 AM CDT 11/03/2024 8:01 AM CDT us Andrade Lozano MD LAB [place]LO[place] [address] [place] [address] from Last 3 Months or Most Recently Relevant to Health Maintenance Insurance BCBS FEDERAL [facility] FEDERAL Care Teams Handling Tech Relationship Specialty Start Date End Date Ioana Worrell PA PCP - General Physician Quality Control Scientist 09/08/18 Manasa Stevens MD [address] [place] [address] Referring Physician Internal Medicine 09/25/18
--- OUTSIDE RECORDS SUMMARY | 2025-05-31 08:06 | XMS_ITS | Clinical Summary ---
Author Organization [facility] Care Team Providers Care Tool Drawing Checker Name Role Phone Unavailable Primary Care Provider Unavailabl e Social History Tobacco Use Types Packs/Day Years Used Date Smoking Tobacco: Never Assessed Comments Unknown Sex and Gender Information Value Date Recorded Sex Assigned at Not on file Legal Sex Female 1:19 PM APPRAISAL SPECIALIST Gender Identity Not on file Sexual Orientation Not on file Plan of Treatment Health Maintenance Due Date Last Done Comments Hepatitis C Virus (HCV) Screening 1961 Pap Smear 1982 Cervical Cancer Screening (CCS) 1991 HPV/Cotest 1991 Cologuard 2006 Colonoscopy 2006 Colorectal Cancer Screening 2006 Immunochemical Fecal Occult Blood 2006 Pneumococcal Immunization (5 0+ years) (1 of 1 - PCV) 2011 Zoster Immunization (1 of 2) 2011 Influenza Immunization (#1) 2025 SARS-COV-2 Immunization ( - season) 2025 Respiratory Syncytial Virus (RSV) Immunization (Adult) (1 - 1-dose 75+ series) 2036 DTaP/Tdap/Td Immunization Discontinued 01/20/2020 TdaP Immunization Completed 01/20/2020 Hepatitis B Immunization Aged Out No longer eligible based on patient's age to complete this topic Human Papillomavirus (HPV) Immunization Aged Out No longer eligible b ased on patient's age to complete this topic Meningococcal Immunization (ACWY) Aged Out No longer eligible based on patient's age to complete this topic Rotavirus Immunization Aged Out No lo nger eligible based on patient's age to complete this topic
--- OUTSIDE RECORDS SUMMARY | 2025-05-31 08:06 | XMS_ITS | Clinical Summary ---
Author Organization [facility] Address [address] [place] [address] Care Team Providers Care Infrastructure Architect Name Role Phone Unavailable Primary Care Provider Unavailabl e Source Comments [facility],non-owned Affiliates and Associated Physician Practices is amultiple site organization consisting of ambulatory clinics and hospital sitesin [place], [place], [place] and [place]. This disclosure is being madepursuant to the Care Everywhere program and may not contain all information available regarding this patient. Last updated 18.[facility] Allergies Active Allergy Reactions Criticality Noted Date [...] patient's age to complete this topic Insurance [facility]
--- OUTSIDE RECORDS SUMMARY | 2025-05-31 08:06 | XMS_ITS | Patient Health Record ---
Author Organization [facility] Address [address] [place], [place] [address] Care Team Providers Care Brick Unloader Tender Name Role Phone Duarte Juan GRAJEDAew Unavailable [phone] Jon Conway PA-C Unavailable [phone] Allergies Allergen (clinical drug ingredient) Drug/Non Drug [...] Act genevieve Magnesium Glycinate *Pick strength-form from [employer] for eRX* 09/06/2023 Not-Taking CoQ-10 100 MG Oral 09/06/2023 Activ e metFORMIN HCl ER 500 MG Oral 09/06/2023 Not-Taking metFORMIN HCl 500 MG Oral 09/06/2023 Active Mounjaro 2.5 MG/0.5ML Subcutaneous 09/06/2023 Not-Taking Levothyroxine Sodium 100 MCG Oral 09/06/2023 Active Mounjaro 10 MG/0.5ML Subcutaneous 09/06/2023 Not-Taking Ivlahmnf-Kkxfrlmog-Q C 3.5-32243-0 Otic 09/06/2023 Not-Taking metroNIDAZOLE 500 MG Oral 09/06/2023 Not-Taking Nitrofurantoin Monohyd Macro 100 MG Oral 09/06/2023 Not-Jeramie ing Cephalexin 500 MG Oral 09/06/2023 N ot-Taking DAPAGLIFLOZIN PROPANEDIOL 5 MG TABLET *Reorder from [facility] for eRx and Interaction Alerts* 09/06/2023 Unknown ACCU-CHEK SOFTCLIX MISCELLANEOUS *Reorder from [facility] for eRx and Interaction Alerts* 09/06/2023 Unknown Clindamycin HCl 300 MG Oral 09/06/2023 Not-Taking Clarithromycin 500 MG Oral 09/06/2023 Not-Taking Escitalopram Oxalate 5 MG Oral 09/06/2023 Not-Taking Doxycycline Hyclate 100 MG Oral 09/06/2023 Not-Taking Methocarbamol 750 MG Oral 09/06/2023 Not-Taking HYDROcodone-Acetamin ophen 5-325 MG Oral 09/06/2023 Not-Taking ACCU-CHEK GUIDE TEST STRIPS *Reorder from [facility] for eRx and Interaction Alerts* 09/06/2023 Unknown Mounjaro 12.5 MG/0.5ML Subcutaneous 09/06/2023 Active ACCU-CHEK GUIDE MONITOR SYSTEM MISCELLANEOUS *Reorder from [facility] for eRx and Interaction Alerts* 09/06/2023 Unknown Thiamine HCl 250 mg ORAL 09/06/2023 Active Mounjaro 7.5 MG/0.5ML Subcutaneous 09/06/2023 Unknown Benzonatate 200 MG Oral 09/06/2023 Not-Taking Amoxicillin-Pot Clavulanate 875-125 MG Oral 09/06/2023 Not-Taking Problems Problem Type SNOMED Code ICD Code Onset Dates Problem Status W/U Status Risk Notes Problem Obesity (601118661) Obesity (BMI 30-39.9) (E66.9) Active confirmed Problem Irreducible hernia of anterior abdominal wall (disorder) (075157223) Incarcerated ventral hernia (K43.6) Active confirmed Problem Helicobacter pylori (84791206) Helicobacter pylori [H. pylori] as the cause of diseases classified elsewhere (B96.81) 10/03/19 24 Active confirmed Problem Type II diabetes mellitus without complication (907419272) Type 2 diabetes mellitus without complications (E11.9) 11/20/19 24 Active confirmed Problem Morbid obesity (disorder) (204848114) Morbid (severe) obesity due to excess calories (E66.01) 09/06/19 Active confirmed Problem Hyperlipidemia (94712923) Hyperlipidemia, unspecified (E78.5) 09/06/19 Active confirmed Problem Obstructive sleep apnea syndrome (disorder) (72244154) Obstructive sleep apnea (adult) (pediatric) (G47.33) 08/14/20 Active confirmed Problem Essential hypertension (17484654) Essential (primary) hypertension (I10) 09/06/19 Active confirmed Problem Gastro-esophageal reflux disease without esophagitis (222007659) Gastro-esophagea l reflux disease without esophagitis (K21.9) 09/06/19 Active confirmed Problem Abnormal weight gain (274667743) Abnormal weight gain (R63.5) 09/06/19 Active confirmed Problem Diabetes mellitus screening (822565328) Encounter for screening for diabetes mellitus (Z13.1) 09/06/19 Active confirmed Problem Postoperative care (874610537) Encounter for other specified surgical aftercare (Z48.89) 11/20/19 Active confirmed Problem History of bariatric surgical procedure (815491984) Bariatric surgery status (Z98.84) 08/14/20 Active confirmed Problem Gastroesophageal reflux disease with esophagitis (disorder) (392429737) Gastro-esophagea l reflux disease with esophagitis, without bleeding (K21.00) 11/20/19 Active confirmed Vital Signs Heart Rate 72 /min 08/06/2024 Temperature 97.9 degrees Fahrenheit 08/06/2024 Height-cm 168.91 cm 08/06/2024 Blood pressure diastolic 81 mm Hg 08/06/2024 Oximetry 98 % 08/06/2024 Weight-kg 97.07 kg 08/06/2024 Height 66.50 in 08/06/2024 Blood pressure systolic 131 mm Hg 08/06/2024 Weight 214 lbs 08/06/2024 BMI 34.02 kg/m2 08/06/2024 Encounters Encounter Location Date Provider Diagnosis [facility] [address] [place] [address] 07/27/2024 [facility] [address] [place], [place] [id number] 08/06/2024 Jon Conway Other specified postprocedural states [...] End Date Bcbs-Mo - Fep [address] [place] [address] [id number] MICHAEL LUNA Self - patient is the insured Medical (General) History Medical History History ICD Code Problems: Abnormal weight gain Essential hypertension Gastric reflux Gastroesophageal reflux disease Hyperlipidemia Morbid obesity Obstructive sleep apnea syndrome Severe obesity Type 2 diabetes mellitus without complic ation , Diabetes Mellitus : Yes Hypo thyroidism : Yes mortgage banker pn : Yes Back Pain, Chronic : Yes, , Surgical History Surgery Date(Month/Year) OPEN INCISIONAL HERNIA REPAIR WITH MESH, Dr. Duarte 07/27/2024 Removal of gastric band ([id number]) Dr. Finesse Duarte; [facility] 11/04/2023 Thyroidectomy ([id number]) 08/26/2016 Laparoscopic adjustable gastric banding ([id number]) (removed 10/2023) 08/26/2011 Oophorectomy (34913990) left ovary 08/26 Cholecystectomy (38346867) 08/26/1987
[2025-05-31 08:58] LABS: INR 0.9; Prothrombin Time 12.0 Seconds (11.1-14.7)
[2025-05-31 08:59] LABS: Partial Thromboplastin Time 27.2 Seconds (22.3-36.8)
[2025-05-31 09:08] LABS: Anion Gap 11 mmol/L (4-12); Blood Urea Nitrogen 24 mg/dL (7-17); Calcium 9.2 mg/dL (8.4-10.2); Carbon Dioxide 23 mmol/L (22-30); Chloride 103 mmol/L (98-107); Estimated Glomerular Filt Rate > 60; Glucose 101 mg/dL (65-110); Potassium 4.2 mmol/L (3.4-5.0); Sodium 137 mmol/L (137-145)
== END 2025-05-31 07:57 | disposition home or self-care (01) ==
LOC: ANHSURGERY 07:58
PROVIDERS: Anesthesiology; Visit Provider Urology
DX: Z01.818 Encounter for other preprocedural examination (principal); N20.0 Calculus of kidney; E11.9 Type 2 diabetes mellitus without complications; R94.31 Abnormal electrocardiogram [ECG] [EKG]
CPT/HCPCS: 36415; 80048; 85610; 85730; 87086; 93005

== ENCOUNTER 2025-06-04 01:02 | Day surgery (SDC) | payer BC, SELFPAY ==
[2025-05-28 08:16] VITALS: BMI 31.4
--- NOTE | 2025-05-28 08:31 | PC.NURSE ---
[facility] has started construction of its new state of the art ER which will open Spring 2026. With this, we anticipate parking may be a challenge for some our surgical patients and families. Parking spaces are limited but are available for all Surgical, obstetrics, and ER patients sharing this lot. If you arrive and find you are having a hard time finding a parking space, please note that we understand the challenges, please drive around the hospital and park near Hospital Entrance 1. When you enter this entrance, you can ask a volunteer to direct or take you back to the surgical waiting area to check in. We appreciate everyone?s understanding of these expected challenges while we build for your future. Report to the Outpatient Waiting Room, entrance under the green pavilion located off [address], at time _0800_ on date _[id number]_. Planned Procedure Time: _1000_.? Time changes happen often and if your time is changed the preop area will call you the afternoon before. - You and your visitor will be asked to self-screen and do not enter if you have any COVID symptoms. Please call surgeon if you need to reschedule. - A mask is optional within the hospital at this time. Patients may have clear liquids (water, carbonated beverages, clear teas, apple juice) until 3 hours prior to surgery with a maximum of 20 ounces. - No food from midnight until time of surgery and no smoking, or chewing tobacco (or any form of nicotine). No chewing gum, candy or mints. Take only the following medications with a SIP of water on the morning of surgery: ___Levothyroxine____ DO NOT STOP ANY OF YOUR OTHER PRESCRIPTION MEDICATIONS PRIOR TO SURGERY EXCEPT THE FOLLOWING Hold all vitamins and supplements for 3 days per anesthesiologist. Medications to discontinue per physician Date to take last zphb___[id number]____ Please no make-up, nail russian, hairspray, perfume, deodorant, or body powder the day of surgery.? No jewelry (including any body piercings) or valuables the day of surgery, leave them at home.? Please take a shower or bath the night before, or the morning of, surgery with an antibacterial soap.? Wear comfortable, loose fitting clothing.? - Jewelry must be removed prior to entering the operating room.? Rings and piercings that are not removed may be cut off. - The hospital will not accept responsibility for valuables.? - Please leave all valuables, including medications, at home the day of surgery. If you are going home after surgery, a licensed milk wagon driver must drive you home.? - NO public transportation without another adult if you receive anesthesia. - We recommend that an adult stay with you for 24 hours following discharge. - We also recommend that you do not drive, make important decision, drink alcoholic beverages, or take any drugs that were not prescribed by your health care provider for at least 24 hours after your discharge time. Follow any additional instructions given to you from your surgeon. Telephone instructions given to __Cheryl__and asked if any additional questions and then verbalized understanding. Patient advised to call surgeon office or pre surgery nurse liaison [phone] if any additional questions.
[2025-06-04] VITALS (7 sets, daily range): BP systolic 106–149; BP diastolic 45–69; PULSE 74–85; RESP 14–24; TEMP 36.6–37.1; O2SAT 94–99; BMI 31.1
--- NOTE | ~2025-06-04 | XR_ITS ---
EXAMINATION: XR abdomen/kub 1V DATE: 06/04/2025 08:05 INDICATION: Pre-Litho left-sided stone TECHNIQUE: A supine view of the abdomen on 2 radiographs was obtained. COMPARISON: 04/27/2025 FINDINGS: Clips project over the right upper abdomen. Moderate amount of air in nondilated large and small bowel. Moderate amount of stool. Stable small calcification in the lower pole of the left kidney. IMPRESSION: 1. Stable small calcification in the lower pole of the left kidney. 2. Nonspecific abdomen with a moderate amount of stool. Reviewed, dictated and finalized at location Q.
--- OUTSIDE RECORDS SUMMARY | 2025-06-04 01:04 | XMS_ITS | Clinical Summary ---
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 on file Not on file Not on file Last Filed Vital Signs Vital Sign Reading Time Taken Comments Blood Pressure 132/78 09/21/2020 1:52 PM RN MEDICAL INPATIENT SERVICES saran e bp Pulse 75 08/24/2020 10:07 AM RN MEDICAL INPATIENT SERVICES Temperature - - Respiratory Rate - - Oxygen Saturation 98% 08/24/2020 10: 07 AM RN MEDICAL INPATIENT SERVICES Inhaled Oxygen Concentration - - Weight 100.9 kg (222 lb 8 oz) 09/21/2020 1:52 PM RN MEDICAL INPATIENT SERVICES home scale Height 170.2 cm (5' 7) 09/21/2020 1:52 PM RN MEDICAL INPATIENT SERVICES Body Mass Index 34.85 09/21/2020 1:52 PM RN MEDICAL INPATIENT SERVICES Plan of Treatment Health Maintenance Due Date [...] Screening wi th HPV 05/25/2024 COVID-19 Vaccine ( - 2024-2 6 season) 2025 06/28/2021, 09/29/2020, 09/08/2020 Influenza Adult (#1) 2025 08/04/2021 DTaP, Tdap and Td Vaccines ( 2 [...] patient's age to complete this topic Insurance [facility] Care Teams Drapery Inspector Relationship Specialty Start Date End Date Josh Ardon MD [address] [address] PCP - General INTERNAL MEDICINE 07/05/20
--- OUTSIDE RECORDS SUMMARY | 2025-06-04 01:04 | XMS_ITS | Clinical Summary ---
Author Organization [facility] Address [address] [place] [address] Care Team Providers Care Construction Management Assistant Name Role Phone Ioana Worrell Primary Care Provider [phone] Manasa Stevens MD Unavailable [phone] Allergies Active Allergy Reactions Criticality Noted [...] Description 03/16/2025 11:00 AM CDT Office Visit 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 Gender Identity Not on file Sexual Orientation [...] 11/04/2024 7:23 AM CDT SPLIT 11/03/2024 FROM [id number] Andrade Lozano MD LAB URINE ORDERABLES Final Res ult Performing Organization Address City/[facility]/ZIP Co de Phone Number [facility] [address] [place] [address] * Hemoglobin A1c (11/03/2024 7:59 AM CDT) Hgb A1C 5.6 <5.7 % of total Hgb [facility] Comment: For the purpose of screening for the presence of diabetes: <5.7% Consistent with the absence of diabetes 5.7-6.4% Consistent with increased risk for diabetes (prediabetes) > or =6.5% Consistent with diabetes This assay result is consistent with a decreased risk of diabetes. Currently, no consensus exists regarding use of hemoglobin A1c for diagnosis of diabetes in children. According to [place] Diabetes Association (ADA) guidelines, hemoglobin A1c <7.0% represents optimal control in non- diabetic patients. Different metrics may apply to specific patient populations. Standards of Medical Care in Diabetes(ADA). Blood 11/03/2024 7:59 AM CDT 11/03/2024 8:01 AM CDT us Andrade Lozano MD LAB BLOOD ORDERABLES Final Res ult Performing Organization Address City/[facility]/ZIP Co de Phone Number [facility] [address] [place] [address] * (ABNORMAL) Lipid panel (11/03/2024 7:59 AM CDT) Cholesterol 172 <200 mg/dL [facility] HDL 44(L) > OR = 50 mg/dL [facility] Triglycerides 134 <150 mg/dL [facility] LDL 105(H) mg/dL (calc) [facility] Comment: Reference range: <100 Desirable range <100 mg/dL for primary prevention; <70 mg/dL for patients with CHD or diabetic patients with > or = 2 CHD risk factors. LDL-C is now calculated using the Delmar-Saldana calculation, which is a validated novel method providing better accuracy than the Friedewald equation in the estimation of LDL-C. Delmar SS et al. RAMIRO. 2013;310(22): 0433-3940 (http://education.Applied Cavitation/faq/VSC131) Chol/HDL ratio 3.9 <5.0 (calc) [facility] Non-HDL, (LDL+VLDL) 128 <130 mg/dL (calc) [facility] Comment: For patients with diabetes plus 1 major ASCVD risk factor, treating to a non-HDL-C goal of <100 mg/dL (LDL-C of <70 mg/dL) is considered a therapeutic option. Blood 11/03/2024 7:59 AM CDT 11/03/2024 8:01 AM CDT us Andrade Lozano MD LAB BLOOD ORDERABLES Final Res ult [facility] [address] [place] [address] * (ABNORMAL) Comprehensive metabolic panel (11/03/2024 7:59 AM CDT) Glucose 102(H) 65 - 99 mg/dL [facility] Comment: Fasting reference interval For someone without known diabetes, a glucose value between 100 and 125 mg/dL is consistent with prediabetes and should be confirmed with a follow-up test. BUN 20 7 - 25 mg/dL [facility] Creatinine 0.50 0.50 - 1.05 mg/dL [facility] eGFR 105 > OR = 60 mL/min/1.7 3m2 [facility] BUN/creat ratio SEE NOTE: 6 - 22 (calc) [facility] Comment: Not Reported: BUN and Creatinine are within reference range. Sodium 137 135 - 146 mmol/L [facility] Potassium, pl 4.1 3.5 - 5.3 mmol/L [facility] Chloride 102 98 - 110 mmol/L [facility] CO2 25 20 - 32 mmol/L [facility] Calcium 9.0 8.6 - 10.4 mg/dL [facility] [...] BLOOD [place] [address] [place] [address] from Last 3 Months or Most Recently Relevant to Health Maintenance Insurance BC[employer] [facility] [facility] [employer] Care Teams Construction Management Assistant Relationship Specialty Start Date End Date Ioana Worrell PA PCP - General Physician Hide Sorter 09/08/18 Manasa Stevens MD [address] [place] [address] Referring Physician Internal Medicine 09/25/18
--- OUTSIDE RECORDS SUMMARY | 2025-06-04 01:04 | XMS_ITS | Clinical Summary ---
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
--- OUTSIDE RECORDS SUMMARY | 2025-06-04 01:04 | XMS_ITS | Clinical Summary ---
Author Organization [facility] Address [address] [place] [address] Care Team Providers Care Bmx Rider Name Role Phone Unavailable Primary Care Provider Unavailabl e Source Comments [facility] [employer] [facility],non-owned Affiliates and Associated Physician Practices is amultiple site organization consisting of ambulatory clinics and hospital sitesin [place], [place], [place] and [place]. This disclosure is being madepursuant to the Care Everywhere program and may not contain all information available regarding this patient. Last updated 18.[facility] [employer] [facility] Allergies Active Allergy Reactions Criticality Noted Date [...] patient's age to complete this topic Insurance [facility]
[2025-06-04] MEDS: LACTATED RINGERS 1,000 ML 30 ML IV CONT (08:45)
--- NOTE | 2025-06-04 08:48 | WPDHPUPDATE1 ---
History and Physical Update Update Date/Time: 06/04/25 08:48 History and Physical has been reviewed, including an updated exam of the patient. There are NO changes in the patient's condition. Risks, benefits, and alternatives have been discussed and questions answered. Patient agrees to proceed with procedure.
--- NOTE | 2025-06-04 09:32 | P.PNAN_ITS ---
Anes - Initial Pre Proc Eval Procedure: Operation Date: 06/04/25 10:00 Proposed Procedures p Left Extracorporeal Shock Wave Lithotripsy - Solo Burkett MD Date/Time: 06/04/25 09:32 Surgeon: Solo Burkett MD Pre Op Diagnosis: left kidney stone Patient Data Age: 65 Gender: F Height: 1.7 m Weight: 90.1 kg Last Vital Signs Temp 37.1 C 06/04/25 08:45 Pulse 83 06/04/25 08:45 BP 139/53 L 06/04/25 08:45 Pulse Ox 98 06/04/25 08:45 O2 Del Method Room Air 06/04/25 08:45 Allergies Allergy/AdvReac Type Severity Reaction Status Date / Time latex Allergy Unknown RASH-GLOVES Verified 06/04/25 08:58 levofloxacin Allergy Unknown LIP Verified 06/04/25 08:58 SWELLING naproxen Allergy Unknown PETECHIAE Verified 06/04/25 08:58 Penicillins Allergy Unknown Rash Verified 06/04/25 08:58 Home Medications ?Medication ?Instructions ?Recorded ?Confirmed ?Type levothyroxine 100 mcg tablet 100 mcg PO DAILY 12/21/22 06/04/25 History blood sugar diagnostic (Accu-Chek 06/29/23 05/28/25 H istory Guide test strips) blood-glucose meter (Accu-Chek 06/29/23 05/28/25 Hist ory Guide Glucose Meter) lancets (Accu-Chek Softclix 06/29/23 05/28/25 History Lancets) metformin 500 mg tablet,extended 500 mg PO DIRECTED 06/29/23 05/28/25 History release 24 hr ashwagandha extract 500 mg capsule 1,000 mg PO DAILY 1 05/28/25 History magnesium glycinate 100 mg (as 400 mg PO HS 05/28/25 1 History glycinate) tablet (Mag Glycinate) multivitamin (Daily Multi-Vitamin 1 tablet PO DAILY 05/28/25 History tablet) tirzepatide 15 mg/0.5 mL 15 mg subcut WEEKLY 05/28/25 05/28/25 History subcutaneous pen injector (Cass) trazodone 50 mg tablet 50 mg PO HS 05/28/25 5 History vitamin D3 125 mcg (5,000 1 cap PO HS 05/28/25 5 History unit)-vitamin K2 180 mcg capsule Laboratory Tests 06/04/25 08:45 POC Capillary Glucose 98 mg/dl (65-105) Patient hx anesthesia problems: none Family hx anesthesia problems: none Results Review: All pre-operative results and documents have been reviewed as part of the pre- operative evaluation. [facility] Past Medical History Medical History (Updated 06/03/25 @ 15:35 by Chris Osei DO) Anxiety Hypothyroidism Diabetes type 2, controlled ISRA (obstructive sleep apnea) Surgical History Surgical History (Updated 06/03/25 @ 15:35 by Chris Osei DO) History of cholecystectomy Hx of laparoscopic gastric banding Family History Family History Father Family history of drug dependence Hypertension Mother Family history of kidney disease Family history of diabetes mellitus in first degree relative Sibling Family history of malignant neoplasm of brain, Onset Age: 48 Patient's sister is Social History Social History Social History: Caffeine-daily Smoking status: Former smoker Additional smoking assessment comments: College days only. Alcohol intake: current Alcohol use details: rarely Substance use: never Substance use type: does not use Lack of Transportation: No Lack of Food: Never True Current Housing: I Have Housing Concerned About Future Housing: No Difficulty Paying Gas/Electric Bills: No Difficulty Paying for Meds: No Currently Unemployed: No Education: Master's Degree or Higher Difficulty w/ Childcare or Family Care: No Living arrangements: with family Spiritual care concerns: No Anes - Eval Final PreProcedure Day of Procedure 06/04/25 09:32 Patient weight: obese Heart: regular rate and rhythm Lungs: clear to auscultation Airway: Mallampati scale class II Neurological: alert and oriented Last oral intake: >/= 8 hours ASA classification: III Emergent: no Anesthetic plan: proceed Anesthesia type and monitoring: general ETT and standard monitoring Results Review: All pre-operative results and documents have been reviewed as part of the pre- operative evaluation. Informed Consent: The patient's anesthetic plan and its attendant risks and benefits were discussed with the patient/family/POA. Questions were solicited and answers provided to the satisfaction of the patient/family/POA.
[2025-06-04] MEDS: ceFAZolin 2 GM in SODIUM CHLORIDE 0.9% IV 50 ML 100 ML IVPB (09:46)
--- NOTE | 2025-06-04 10:07 | W.PM.PROC2 ---
Procedure Note - Detailed Date of Procedure 06/04/25 Pre-op Diagnosis Left kidney stone Post-op Diagnosis Same Procedure Performed Left ESWL Surgeon Solo Burkett MD Anesthesia General Description of Procedure The patient was brought to the operative suite where she was placed in the supine position on the Dornier lithotripsy table. The focal point of the lithotripter was placed at a 6-7mm left lower pole calculus with a very small contiguous stone. A total of 2500 shocks were delivered at a power setting of 1-4. There appeared to be good fragmentation of the stone. The patient tolerated the procedure well and was taken to the recovery room in good condition. Drains No Packing No Pathology None sent Complications No immediate complications
== END 2025-06-04 12:10 | disposition home or self-care (01) ==
PROVIDERS: Visit Provider Urology
PROC: (CPT 50590; principal; 2025-06-04 10:00)
DX: N20.0 Calculus of kidney (principal); E11.9 Type 2 diabetes mellitus without complications; E03.9 Hypothyroidism, unspecified; F41.9 Anxiety disorder, unspecified; G47.33 Obstructive sleep apnea (adult) (pediatric); R39.15 Urgency of urination; E66.9 Obesity, unspecified; Z68.31 Body mass index [BMI] 31.0-31.9, adult; Z79.84 Long term (current) use of oral hypoglycemic drugs; Z79.85 Long-term (current) use of injectable non-insulin antidiabetic drugs; Z98.84 Bariatric surgery status; Z90.49 Acquired absence of other specified parts of digestive tract; Z87.891 Personal history of nicotine dependence; Z80.8 Family history of malignant neoplasm of other organs or systems; Z82.49 Family history of ischemic heart disease and other diseases of the circulatory system
CPT/HCPCS: 50590; 74018; 82948; J0690; J1100; J2250; J2405; J2704; J3010; J7120

== ENCOUNTER 2025-06-14 13:16 | Outpatient (CLI) | payer BC, SELFPAY ==
--- NOTE | ~2025-06-14 | XR_ITS ---
XR abdomen/kub 1V 06/14/2025 14:01 Indication: Renal stones Procedure: KUB Comparison: Comparison to multiple prior studies sequentially, with oldest reviewed study dated 06/04/2025. Findings: Bowel gas pattern nonobstructive. There are cholecystectomy clips. There are left renal stones. Lung bases unremarkable. Mildly elevated right diaphragm. No focal sclerotic or lytic lesions of the visualized osseous structures. Impression: 1: Left nephrolithiasis. Reviewed, dictated and finalized at location O. Impression: 1: Left nephrolithiasis.
== END 2025-06-14 13:17 | disposition home or self-care (01) ==
LOC: MICIMG 13:17
PROVIDERS: Visit Provider Urology
DX: N20.0 Calculus of kidney (principal)
CPT/HCPCS: 74018

== ENCOUNTER 2025-07-01 09:36 | Outpatient (CLI) | payer BC, SELFPAY ==
--- NOTE | ~2025-07-01 | XR_ITS ---
EXAMINATION: XR abdomen/kub 1V DATE: 07/01/2025 09:52 INDICATION: Left renal stone with 5 days of left flank pain TECHNIQUE: A supine view of the abdomen on 2 radiographs was obtained. COMPARISON: 06/14/2025 FINDINGS: The 4 mm left renal stone previously projected over the lower pole the left kidney has passed into the bladder now projecting over the midline of the bladder. No other renal stones identified although assessment for tiny stones of both kidneys is limited by superimposed mild pattern of stool and gas in the colon. A couple unchanged phlebolith in the left hemipelvis. Cholecystectomy clips in right upper quadrant. Lung bases are clear with no pleural effusion. Mild to moderate lower lumbar spondylosis. IMPRESSION: 1. Interval passage of a 4 mm left renal stone now project over the midline of the bladder. Reviewed, dictated and finalized at location A. OTYPESETTING EQUIPMENT MONITOR
== END 2025-07-01 09:37 | disposition home or self-care (01) ==
LOC: MICIMG 09:38
PROVIDERS: Visit Provider Urology
DX: N20.0 Calculus of kidney (principal)
CPT/HCPCS: 74018

== ENCOUNTER 2025-08-06 10:22 | Emergency (ER) | payer BC, SELFPAY ==
--- NOTE | ~2025-08-06 | XR_ITS ---
EXAM/PROCEDURE: [id number] HISTORY: Fell on step 4 days ago, Rt rib pain with deep breath COMPARISON: None available. TECHNIQUE: Chest x-ray and right rib series FINDINGS: Small platelike atelectatic or scarring changes of the right midlung. No pneumothorax or subphrenic free air seen. The lungs are otherwise clear. Heart size normal. No displaced rib fractures seen. Surgical clips in the right upper quadrant. IMPRESSION: No pneumothorax or displaced rib fractures seen. Platelike atelectatic appearing changes in the right midlung. Reviewed, dictated and finalized at location A. LABOURER IMPRESSION: No pneumothorax or displaced rib fractures seen. Platelike atelectatic appearin g changes in the right midlung.
[2025-08-06 10:22] VITALS: BP 170/74; PULSE 75; RESP 18; TEMP 36.9; O2SAT 100
--- NOTE | 2025-08-06 10:53 | ED.GENADULT ---
HPI - General Adult General Chief complaint: Fall Stated complaint: R Side Pain Time Seen by Provider: 08/06/25 10:24 Source: patient Mode of arrival: ambulatory Limitations: no limitations History of Present Illness HPI narrative: Patient is a 65-year-old female who presents with right rib pain after fall 4 days ago. Patient has bruising to right hip and right shoulder but states those are improving along with the pain but the right rib is still consistent expression with deep breaths. Patient hit rib on step Related Data Home Medications ?Medication ?Instructions ?Recorded ?Confirmed ?Last Taken ?Type levothyroxine 100 mcg tablet 100 mcg PO DAILY 12/21/22 08/06/25 06/04/25 History blood sugar diagnostic (Accu-Chek 06/29/23 05/28/25 Unknown History Guide test strips) blood-glucose meter (Accu-Chek 06/29/23 05/28/25 Unknown History Guide Glucose Meter) lancets (Accu-Chek Softclix 06/29/23 05/28/25 Unknown History Lancets) metformin 500 mg tablet,extended 500 mg PO DIRECTED 06/29/23 08/06/25 Unknown History release 24 hr ashwagandha extract 500 mg capsule 1,000 mg PO DAILY 05/28/25 08/06/25 Unknown History magnesium glycinate 100 mg (as 400 mg PO HS 05/28/25 08/06/25 Unknown History glycinate) tablet (Mag Glycinate) multivitamin (Daily Multi-Vitamin 1 tablet PO DAILY 05/28/25 08/06/25 Unknown History tablet) tirzepatide 15 mg/0.5 mL 15 mg subcut WEEKLY 05/28/25 08/06/25 Unknown History subcutaneous pen injector (Mounjaro) trazodone 50 mg tablet 50 mg PO HS 05/28/25 08/06/25 Unknown History vitamin D3 125 mcg (5,000 1 cap PO HS 05/28/25 08/06/25 Unknown History unit)-vitamin K2 180 mcg capsule Allergies Allergy/AdvReac Type Severity Reaction Status Date / Time latex Allergy Unknown RASH-GLOVES Verified 08/06/25 11:00 levofloxacin Allergy Unknown LIP Verified 08/06/25 11:00 SWELLING naproxen Allergy Unknown PETECHIAE Verified 08/06/25 11:00 Penicillins Allergy Unknown Rash Verified 08/06/25 11:00 Review of Systems Review of Systems: All systems reviewed & are unremarkable except as noted in HPI and below Constitutional: Constitutional: Denies body ache(s), Denies chills, Denies fatigue, Denies fever(s), Denies headache(s), Denies malaise and Denies weakness Eyes: Eyes: Denies blurry vision, Denies irritation and Denies loss of vision ENT: Denies otalgia, Denies headache(s), Denies nasal discharge, Denies sinus pain and Denies sore throat Cardiovascular: Cardiovascular: Denies chest pain, Denies irregular heart rhythm and Denies dyspnea Respiratory: Respiratory: Reports pain with cough and Denies dyspnea Gastrointestinal: Gastrointestinal: Denies abdominal pain, Denies melena, Denies hematochezia, Denies diarrhea, Denies nausea and Denies vomiting Musculoskeletal: Musculoskeletal: Denies back pain, Denies myalgias and Denies arthralgias Integumentary/Breasts: Skin/Breast: Denies pruritus and Denies rash Neurologic: Denies headache(s), Denies loss of vision and Denies weakness Psychiatric: Psychiatric: Reports no additional psychiatric complaints Endocrine: Endocrine: Denies fatigue PMFSH Past Medical History Medical History Anxiety Hypothyroidism Diabetes type 2, controlled ISRA (obstructive sleep apnea) Surgical History Surgical History History of cholecystectomy Hx of laparoscopic gastric banding Family History Family History Father Family history of drug dependence Hypertension Mother Family history of kidney disease Family history of diabetes mellitus in first degree relative Sibling Family history of malignant neoplasm of brain, Onset Age: 48 Patient's sister is Social History Social History Social History: Caffeine-daily Smoking status: Former smoker Additional smoking assessment comments: College days only. Alcohol intake: current Alcohol use details: rarely Substance use: never Substance use type: does not use Lack of Transportation: No Lack of Food: Never True Current Housing: I Have Housing Concerned About Future Housing: No Difficulty Paying Gas/Electric Bills: No Difficulty Paying for Meds: No Currently Unemployed: No Education: Master's Degree or Higher Difficulty w/ Childcare or Family Care: No Living arrangements: with family Spiritual care concerns: No Comments At time of signature, agree with nursing past medical, surgical, social and family history. There is no relevant family history pertinent to the presenting complaint. Exam Const: General: cooperative, healthy appearing, comfortable, no acute distress and well nourished Nutritional Appearance: well nourished Orientation/consciousness: patient oriented x3 Limitations: no limitations HENMT: Head: normal to inspection, normocephalic and atraumatic Ears: hearing grossly normal bilaterally and external ears normal Face/Nose/Sinus: Normal external nose present, normal facial exam and face symmetric Face and sinus: normal facial exam and face symmetric Mouth: Yes lip normal Eyes: General: appearance normal, both eyes and all related structures Alignment and Position: alignment normal and position normal Periorbital: periorbital findings normal Eyelids: eyelids normal Pupils: Equal, round and reactive pupils present EOM: EOMs intact bilaterally Neck: Neck: normal visual inspection, full ROM and supple Chest: Chest palpation & inspection: normal inspection of the chest Chest/axillae images:  1. fading yellow bruise line with tenderness on palpation Resp: Effort & Inspection: normal respiratory effort and able to speak in complete sentences Auscultation: clear to auscultation bilaterally Cardio: Rate: regular rate Rhythm: regular rhythm Heart sounds: S1 normal heart sound present and S2 normal heart sound present GI: Inspection: normal to inspection Skin: General skin exam: normal color and no rashes or lesions noted Neuro: General: patient oriented x3 and moves all extremities Cranial nerves: Yes Equal, round and reactive pupils present Speech: normal speech Gait exam (Neuro): Normal gait present Extrem: General: normal to inspection, full ROM and no edema Psych: Appearance: grossly normal and well kempt Mental Status: mental status grossly normal Speech and movement: Normal speech and movement present Affect: normal affect Attitude: cooperative Thought process: Normal thought process present Course Course Emergency Course: Patient is aware of diagnosis, understands and agrees to treatment plan. Anticipatory guidance given. Patient agrees to follow-up as directed and is aware of reasons to seek care at the emergency department. Portions of this record may have been created with voice recognition software Level of Care: Express Care Visit MDM MDM Narrative Medical decision making narrative: Pt well hydrated appearing, in no respiratory distress, hemodynamically stable. Recommend supportive care. The patient is stable at time of discharge the clinical impression was discussed and the patient was given the opportunity to ask questions, which were addressed as completely as possible given the information available at present. Anticipatory guidance and return to care precautions were discussed and the importance of primary care follow-up was stressed and encouraged. The patient voiced understanding of the plan, indications to return, and the need for follow-up. Exam findings show no acute concerns or changes Patient is appropriate for outpatient treatment and follow-up. Differential Diagnosis Differential Diagnosis: rib fracture, rib contusion. Medical Records I have reviewed the following patient records and this information was taken into consideration when formulating the assessment and plan.: previous clinic visits Imaging Data Radiologist's impression: EXAM/PROCEDURE: [id number] HISTORY: Fell on step 4 days ago, Rt rib pain with deep breath COMPARISON: None available. TECHNIQUE: Chest x-ray and right rib series FINDINGS: Small platelike atelectatic or scarring changes of the right midlung. No pneumothorax or subphrenic free air seen. The lungs are otherwise clear. Heart size normal. No displaced rib fractures seen. Surgical clips in the right upper quadrant. IMPRESSION: No pneumothorax or displaced rib fractures seen. Platelike atelectatic appearing changes in the right midlung. Reviewed, dictated and finalized at location A. [facility] [employer] Discharge Plan Discharge Clinical Impression: Contusion of rib on right side Qualifiers: Encounter type: initial encounter Qualified Code(s): S29.8XXA - Other specified injuries of thorax, initial encounter Patient Disposition: Home Condition: Stable Instructions: Rib Contusion (ED) Additional Instructions: Pain may get worse for a week and last for up to eight weeks.The most important thing is to get your pain under control. Breathing exercises will not be effective unless your pain is controlled. Take your pain relieving medications as prescribed by your doctor, and continue to speak with your primary care doctor about maintaining your pain relief. Strenuous activities should be avoided for the first 3-4 weeks, after which you can commence physical activity as pain allows. If the pain is increasing you may be doing too much. Cough and deep breath at least 10 times per hour. Try holding a cushion firmly against the painful site when you lopez and cough to decrease the pain. Sit out of bed and keep moving as much as you feel comfortable. This will decrease the risk of developing lung complications. Patient Language: Swedish Prescriptions: New baclofen 10 mg tablet 10 mg PO BID Qty: 10 0RF No Action (DME) blood-glucose meter [Accu-Chek Guide Glucose Meter] [facility] MISCELLANEOUS (DME) Accu-Chek Guide test strips Strip MISCELLANEOUS (DME) lancets [Accu-Chek Softclix Lancets] [facility] [place] MISCELLANEOUS metformin 500 mg tablet extended release 24 hr 500 mg PO DIRECTED levothyroxine 100 mcg tablet 100 mcg PO DAILY Mounjaro 15 mg/0.5 mL pen injector 15 mg SUBCUT WEEKLY Patient Comments: Sundays for diabetes. trazodone 50 mg tablet 50 mg PO HS Mag Glycinate 100 mg tablet 400 mg PO HS ashwagandha extract 500 mg capsule 1,000 mg PO DAILY vitamin D3-vitamin K2 125 mcg (5,000 unit)-180 mcg capsule 1 cap PO HS multivitamin [Daily Multi-Vitamin] Tablet 1 tablet PO DAILY hydrocodone-acetaminophen 5-325 mg tablet 1 - 2 tablet PO Q6H PRN (Reason: pain) Qty: 20 0RF Follow-up/Referrals: Kyle,Sheila Lanza, LINING PRINTER [Primary Care Provider, Unknown] - 3 Days Time of Disposition: 11:22
== END 2025-08-06 11:25 | disposition home or self-care (01) ==
PROVIDERS: Emergency Provider Nurse Practitioner Family
DX: S20.211A Contusion of right front wall of thorax, initial encounter (principal); W19.XXXA Unspecified fall, initial encounter; Z87.891 Personal history of nicotine dependence; E11.9 Type 2 diabetes mellitus without complications; Z79.84 Long term (current) use of oral hypoglycemic drugs; Z79.85 Long-term (current) use of injectable non-insulin antidiabetic drugs; E03.9 Hypothyroidism, unspecified
CPT/HCPCS: 71101; 99213; G0463